=== PATIENT | female | born 1940 | race Caucasian/White ===

== ENCOUNTER 2018-01-14 16:11 | Inpatient (IN) ==
[2018-01-14] MEDS ORDERED: Naloxone 0.4 MG/ML INJ IVP PRN (20:19)
--- NOTE | 2018-01-14 20:23 | Internal Med History&Physical ---
Date of Encounter: 01/14/18 Time of Encounter: 20:23 Internal Medicine - H&P: HPI Chief complaint: Chest pain, headache Admitted From: Emergency Dept Plans for Post Hospital Care: Home History of present illness: Ms. WELLS is a 77 year old female with h/o- CAD, HTN, hypothyroidism, who was transferred from [facility], due to elevated Troponin and chest pain. Patient reports bumping her head 5 days ago, to the refrigerator door while taking something out of the fridge. She also reports pulling on plastic from the bottom rack and when she "pulled her chest muscles" because she has been having soreness in her chest and lower back since then. SHe presented to the ER today as her daughter was concerned about the bump on her head and chest pain. SHe denies cough, shortness of breath, palpitations, diaphoresis, leg swelling. SHe is ADL-independent and takes care of her at home. SHe did have h/o- 4 stents placed, the last two in 2016, follows with Cardiology as outpatient and takes ASA and Plavix. Past Med Surg Social Fam HX - Past Medical History Source: patient Medical history: coronary artery disease, hyperlipidemia, hypertension, osteoporosis, thyroid disease Psychiatric history: no psych history - Past Surgical History Surgical History: no surgical history - Social History Smoking Status: Never smoker Smokeless Tobacco Status: No Alcohol use: none Drug use: none Occupational status: retired Current living situation: Home, With Family Activity Level: Independent ambulation Recent Out of Country Travel Within the Last 8 Weeks: No Exposure or Possible Exposure to Illness During Travel: No - Family History Mother Hx Family Cardiac Disorders: Yes (CAD) Hx Family Cancer: Yes (uterine cancer) Hx Family Endocrine Disorder: Yes (DM) Father Hx Family Cardiac Disorders: Yes (CAD) Internal Medicine - H&P: Meds 3 Allergy/AdvReac Type Severity Reaction Status Date / Time atenolol Allergy Severe Weakness Verified 01/14/18 20:44 Procaine [From Novocain] Allergy Severe See Verified 01/14/18 20:48 Comments levofloxacin [From Levaquin] Allergy See Verified 01/14/18 20:46 Comments prednisone Allergy See Verified 01/14/18 20:47 Comments ticagrelor [From Brilinta] Allergy Nausea Verified 01/14/18 20:47 All Systems PM: A 10-system review of systems was performed and is negative for pertinent findings except as documented above in the HPI. - Constitutional Constitutional: no chills, no fever(s), no night sweats - EENT Eyes: no change in vision, no discharge, no pain, no photophobia Ears: no ear discharge, no ear pain, no tinnitus Nose, mouth and throat: no dysphagia, no nasal discharge, no neck pain, no sore throat - Cardiovascular Cardiovascular ROS IM: chest pain - Respiratory Respiratory: no cough, no dyspnea, no wheezing, no excessive phlegm production - Gastrointestinal Gastrointestinal: no abdominal pain, no diarrhea, no hematemesis, no hematochezia, no melena, no nausea, no vomiting - Genitourinary Genitourinary: no change in urinary stream, no dysuria, no flank pain, no hematuria - Musculoskeletal Musculoskeletal ROS IM: no numbness, no tingling - Integumentary Integumentary IM: no rash, no unusual bruising - Neurological Neurological ROS: headache(s), no confusion, no convulsions, no focal weakness, no numbness, no tingling, no tremor(s) - Hematologic/Lymphatic Hematologic/Lymphatic: no easy bruising - Constitutional Vitals: Temp Pulse Resp BP Pulse Ox 98.1 F 56 18 153/91 100 01/14/18 18:53 01/14/18 18:53 01/14/18 18:53 01/14/18 18:53 01/14/18 18:53 General appearance: Present: A&O X 3, answers questions appropriately - Respiratory Respiratory exam: Present: CTAB. Absent: accessory muscle use, rales, rhonchi, wheezes - Cardiovascular Cardiovascular exam: Present: RRR, +S1, +S2. Absent: diastolic murmur, gallop, rubs, systolic murmur - GI/Abdominal GI/Abdominal exam: Present: normal bowel sounds, soft (epigastric tenderness), no peritoneal signs. Absent: distended, tenderness - Extremities Exam Extremities exam: Present: full ROM, warm, radial pulses palpable and symmetrical. Absent: calf tenderness, cyanotic, pedal edema - Neurological Exam Neurological exam: Present: CN II-XII intact, oriented X3, no focal deficits. Absent: pronater drift, facial droop, speech deficit - Skin Skin exam: Present: dry, intact - Assessment and plan (1) NSTEMI (non-ST elevated myocardial infarction) Current Visit: Yes Status: Acute Assessment and plan: patient presents with chest pain, noted to have Troponin leak of 0.53, second one elevated to 1.21; EKG shows sinus bradycardia, LVH, LAD, septal infarct; continue anticoagulation with IV Heparin drip, Telemetry monitoring and cycle Troponins. Patient reports some chest and epigastric discomfort both due to musculoskeletal injury and possible anginal pain; continue PRN Tylenol and NTG. Continue beta pau, hold if HR<60; continue ASA, Plavix, statin; check TTE. Cardiology has been consulted by ER physician; High risk for complications; (2) CAD (coronary artery disease) Current Visit: Yes Status: Chronic Qualifiers: Coronary Disease-Associated Artery/Lesion type: [place] artery [place] vs. transplanted heart: [place] heart Associated angina: with unstable angina Qualified Code(s): I25.110 - Atherosclerotic heart disease of [place] coronary artery with unstable angina pectoris (3) Essential hypertension Current Visit: Yes Status: Chronic Assessment and plan: monitor BP closely and resume home meds; (4) Osteoporosis Current Visit: Yes Status: Chronic Qualifiers: Osteoporosis type: age-related Presence of current pathological fracture: unspecified Qualified Code(s): M81.0 - Age-related osteoporosis without current pathological fracture (5) Hypothyroidism Current Visit: Yes Status: Chronic Assessment and plan: continue Levothyroxine; Qualifiers: Hypothyroidism type: unspecified Qualified Code(s): E03.9 - Hypothyroidism , unspecified - Time Spent With Patient Total time spent is greater than 50% in coordination of care (as documented) at patient's floor/unit and/or counseling patient:
[2018-01-14] MEDS ORDERED: *HR* Heparin 5,000 UNIT/ML VIAL IVP ONE (21:39)
[2018-01-14] MEDS ORDERED: *HR* Heparin 5,000 UNIT/ML VIAL IVP PRN (21:39)
[2018-01-14 21:57] LABS: Prothrombin Time 10.9 Seconds (9.4-12.1)
[2018-01-14 22:10] LABS: Activated Partial Thrombo Time 234.4 Seconds (26.0-36.0)
[2018-01-14 22:26] LABS: Heparin anti-factor XA UFH 1.04 IU/mL (0.30-0.70)
[2018-01-14 22:38] LABS: Hematocrit 34.4 % (35.3-44.9); Hemoglobin 11.7 g/dL (11.5-15.4); Mean Corpuscular Hemoglobin 32.4 pg (28.0-33.3); Mean Corpuscular Volume 95.3 fL (83.0-100.0); Mean Platelet Volume 10.8 fL (9.4-12.4); Platelet Count 235 K/mcL (140-400); Red Blood Count 3.61 M/mcL (3.82-4.97); Red Cell Distribution Width 12.7 % (11.5-14.5)
[2018-01-14] MEDS: Acetaminophen 325 MG TABLET PO PRN (22:50)
[2018-01-14] MEDS: Heparin 25,000 UNIT/500 ML D5W 25,000 UNIT/500 ML BAG IVC SCH (23:52)
[2018-01-15 02:35] LABS: Basophils % 0.5 %; Eosinophils # 0.2 K/mcL (0.0-0.6); Eosinophils % 2.1 %; Hematocrit 31.9 % (35.3-44.9); Hemoglobin 10.8 g/dL (11.5-15.4); Immature Granulocytes % 0.1 % (0-4); Lymphocytes # 3.4 K/mcL (0.6-4.6); Lymphocytes % 40.2 %; Mean Corpuscular HGB Conc 33.9 g/dL (31.6-35.5); Mean Corpuscular Hemoglobin 32.4 pg (28.0-33.3); Mean Corpuscular Volume 95.8 fL (83.0-100.0); Monocytes # 0.8 K/mcL (0.0-1.3); Monocytes % 9.4 %; Platelet Count 250 K/mcL (140-400); Red Blood Count 3.33 M/mcL (3.82-4.97); Red Cell Distribution Width 12.6 % (11.5-14.5); Segmented Neutrophils % 47.7 %
[2018-01-15 02:53] LABS: BUN/Creatinine Ratio 19 (6-26); Blood Urea Nitrogen 14 mg/dL (8-23); Calcium 9.2 mg/dL (8.6-10.3); Carbon Dioxide 27 mEq/L (23-29); Chloride 102 mEq/L (98-107); Cholesterol 208 mg/dL (< 200); Glucose 62 mg/dL (70-105); HDL Cholesterol 69 mg/dL (40-59); LDL Cholesterol,Calculated 127 mg/dL (0-99); Osmolality,Calculated 274 (280-300); Potassium 3.9 mEq/L (3.5-5.1); Sodium 133 mEq/L (136-145); Triglycerides 59 mg/dL (< 150); eGFR For African Americans > 60 (> 60); eGFR For Non-African Americans > 60 (> 60)
[2018-01-15] MEDS ORDERED: Dextrose Gel 15 GM/37.5 ML TUBE PO PRN (08:25)
[2018-01-15] MEDS ORDERED: *HR* Dextrose 50 % in Water (Syg) 50 ML SYRINGE IVP PRN (08:25)
[2018-01-15] MEDS ORDERED: D5% in Water 1,000 ML IVC PRN (08:25)
[2018-01-15] MEDS: Dextrose Gel 15 GM/37.5 ML TUBE PO PRN ×2 (08:52→09:22)
[2018-01-15] MEDS: Aspirin Enteric Coated 81 MG Tablet PO SCH (08:52)
--- NOTE | 2018-01-15 09:12 | Cardiology Consult Note ---
Date of Encounter: 01/15/18 Time of Encounter: 09:04 Assessment and Plan (1) NSTEMI (non-ST elevated myocardial infarction) Current Visit: Yes Status: Acute Chest pain atypical on presentation with elevated troponins peak 1.2 history of last stents in July 2016 an outside hospital. Obtain records for review and plan for left heart cath. Risks benefits and alternatives discussed patient she agrees to proceed. Discussion w patient/family: The assessment and plan as outlined above was discussed with the patient and/or family members who expressed understanding and agreement. All questions were answered. Thank you for involving us in the care of your patient. Please call with any questions. History of Present Illness Consult date: 01/15/18 Consult reason: NSTEMI Chief complaint: Chest Pain History of present illness: Ms. WELLS is a 77 year old female with history of hypertension found to have an elevated troponin peak of 1.2 transferred to [facility]. Patient has history of coronary artery disease status post 4 stents in the past most recent July 2016. These were done at an outside hospital by Dr. Salgado, Will obtain records for review. Patient likely will need left heart catheter for elevated troponins and chest pain. Currently on ACS heparin continuing aspirin and Plavix. Patient is chest pain-free Past Med Surg Social Fam HX - Past Medical History Medical history: coronary artery disease, hyperlipidemia, hypertension, osteoporosis, thyroid disease Psychiatric history: no psych history - Past Surgical History Surgical History: no surgical history - Social History Smoking Status: Never smoker Smokeless Tobacco Status: No Alcohol use: none Drug use: none - Family History Mother Hx Family Cardiac Disorders: Yes (CAD) Hx Family Cancer: Yes (uterine cancer) Hx Family Endocrine Disorder: Yes (DM) Father Hx Family Cardiac Disorders: Yes (CAD) Medications and Allergies 3 Allergy/AdvReac Type Severity Reaction Status Date / Time atenolol Allergy Severe Weakness Verified 01/14/18 20:44 Procaine [From Novocain] Allergy Severe See Verified 01/14/18 20:48 Comments levofloxacin [From Levaquin] Allergy See Verified 01/14/18 20:46 Comments prednisone Allergy See Verified 01/14/18 20:47 Comments ticagrelor [From Brilinta] Allergy Nausea Verified 01/14/18 20:47 All Systems Review: The remainder of the systems were reviewed and are negative Physical Examination Vital Signs, Last 4 Hours Temp Pulse Resp BP Pulse Ox 01/15/18 07:19 97.7 F 58 17 138/74 94 General: Conversant, No Apparent Distress HEENT: Atraumatic, Normocephaly, Mucus Membranes Moist Neck: No JVD, Normal carotid pulses Cardiac: Reg Rate and Rhythm, Normal S1 and S2, No Murmur Lungs: Normal Breath Sounds, No Wheeze, Rales, Rhonchi Neuro: Alert and responsive, No focal deficits noted Abdomen: Soft, Non-Tender Skin: No rashes noted on visualized skin Musculoskeletal: No Chest Wall Tenderness Extremities: No Clubbing, No Cyanosis, No Edema, Normal Pulses Results 01/15/18 02:15 01/15/18 02:15 Lab Results 01/14/18 01/14/18 01/14/18 20:43 21:03 22:29 WBC 8.9 Hgb 11.7 Hct 34.4 L Plt Count 235 INR 1.0 APTT 234.4 H* Sodium Potassium Chloride Carbon Dioxide BUN Creatinine Glucose Calcium Troponin I 1.21 H* 01/15/18 01/15/18 01/15/18 02:15 02:15 02:15 WBC 8.4 Hgb 10.8 L Hct 31.9 L Plt Count 250 INR APTT Sodium 133 L Potassium 3.9 Chloride 102 Carbon Dioxide 27 BUN 14 Creatinine 0.73 Glucose 62 L Calcium 9.2 Troponin I 0.80 H* 01/15/18 01/15/18 05:35 08:13 WBC Hgb Hct Plt Count INR APTT 88.4 H D Sodium Potassium Chloride Carbon Dioxide BUN Creatinine Glucose Calcium Troponin I 0.42 H*
--- NOTE | 2018-01-15 10:05 | Internal Med Progress Note ---
<Jae Villanueva - Last Filed: 01/15/18 15:56> Date of Encounter: 01/15/18 Time of Encounter: 08:00 - Assessment and plan (1) NSTEMI (non-ST elevated myocardial infarction) Current Visit: Yes Status: Acute Assessment and plan: - Elevated troponin at 1.21 which later trended down to 0.80 and 0.42. - Cardiology is waiting for patient's medical record from other facilities to decide if patient needs C. - Patient reports no chest pain at this time. - Continue heparin drip, aspirin, Plavix. - Continue to monitor closely with telemetry. (2) CAD (coronary artery disease) Current Visit: Yes Status: Chronic Assessment and plan: - Significantly history of CAD s/p stents x4. - Continue aspirin and Plavix. Qualifiers: Coronary Disease-Associated Artery/Lesion type: [place] artery [place] vs. transplanted heart: [place] heart Associated angina: with unstable angina Qualified Code(s): I25.110 - Atherosclerotic heart disease of [place] coronary artery with unstable angina pectoris (3) Essential hypertension Current Visit: Yes Status: Chronic Assessment and plan: - Blood pressure within normal range most of time. - Continue current antihypertensive regimen. (4) Hypothyroidism Current Visit: Yes Status: Chronic Assessment and plan: - Continue home dose Synthroid. Qualifiers: Hypothyroidism type: unspecified Qualified Code(s): E03.9 - Hypothyroidism , unspecified (5) Osteoporosis Current Visit: Yes Status: Chronic Assessment and plan: - Per patient's family, patient was told in the past not a CABG candidate given her significant osteoporosis. Qualifiers: Osteoporosis type: age-related Presence of current pathological fracture: unspecified Qualified Code(s): M81.0 - Age-related osteoporosis without current pathological fracture (6) DVT prophylaxis Current Visit: Yes Status: Acute Assessment and plan: - Currently on heparin drip. - Time Spent With Patient Total time spent is greater than 50% in coordination of care (as documented) at patient's floor/unit and/or counseling patient: - Subjective Interval history: Patient was seen and examined this morning. Patient reports chest pain resolved and denies shortness of breath, palpitation, diaphoresis, abdominal pain, nausea , vomiting. - Constitutional Vitals: Temp Pulse Resp BP Pulse Ox 97.7 F 58 17 138/74 94 01/15/18 07:19 01/15/18 07:19 01/15/18 07:19 01/15/18 07:19 01/15/18 07:19 General appearance: Present: A&O X 3, answers questions appropriately - Head Head exam: Present: normal inspection - Eye Eye exam: Present: EOMI - Neck Neck exam general surgery: Present: normal inspection, trachea midline - Respiratory Respiratory exam: Present: CTAB - Cardiovascular Cardiovascular exam: Present: RRR, +S1, +S2 - GI/Abdominal GI/Abdominal exam: Present: normal bowel sounds, soft. Absent: tenderness - Extremities Exam Extremities exam: Absent: cyanotic, pedal edema - Neurological Exam Neurological exam: Present: alert, no focal deficits. Absent: facial droop, speech deficit - Skin Skin exam: Present: dry, warm Internal Medicine: Result - Labs CBC & Chem 7: 01/15/18 02:15 01/15/18 02:15 Labs: Short CBC 01/14/18 01/15/18 Range/Units 22:29 02:15 WBC 8.9 8.4 (4.3-11.1) K/mcL Hgb 11.7 10.8 L (11.5-15.4) g/dL Hct 34.4 L 31.9 L (35.3-44.9) % Plt Count 235 250 (140-400) K/mcL Neutrophils # 4.0 (1.6-8.9) K/mcL BMP 01/15/18 02:15 Sodium 133 L Potassium 3.9 Chloride 102 Carbon Dioxide 27 BUN 14 Creatinine 0.73 Glucose 62 L Calcium 9.2 Cardiac Enzymes 01/14/18 01/15/18 01/15/18 Range/Units 20:43 02:15 08:13 Troponin I 1.21 H* 0.80 H* 0.42 H* (< 0.04) ng/mL - ABG Interpretation ABG results: PT/INR, D-dimer PT 10.9 Seconds (9.4-12.1) 01/14/18 21:03 <Angel Delgadillo - Last Filed: 01/15/18 18:21> Date of Encounter: 01/15/18 - Assessment and plan (1) NSTEMI (non-ST elevated myocardial infarction) Current Visit: Yes Status: Acute (2) CAD (coronary artery disease) Current Visit: Yes Status: Chronic Qualifiers: Coronary Disease-Associated Artery/Lesion type: [place] artery [place] vs. transplanted heart: [place] heart Associated angina: with unstable angina Qualified Code(s): I25.110 - Atherosclerotic heart disease of [place] coronary artery with unstable angina pectoris (3) Essential hypertension Current Visit: Yes Status: Chronic (4) Osteoporosis Current Visit: Yes Status: Chronic Qualifiers: Osteoporosis type: age-related Presence of current pathological fracture: unspecified Qualified Code(s): M81.0 - Age-related osteoporosis without current pathological fracture (5) Hypothyroidism Current Visit: Yes Status: Chronic Qualifiers: Hypothyroidism type: acquired Qualified Code(s): E03.9 - Hypothyroidism, unspecified (6) Vasovagal episode Current Visit: Yes Status: Acute - Time Spent With Patient Total time spent is greater than 50% in coordination of care (as documented) at patient's floor/unit and/or counseling patient: - Constitutional Vitals: Temp Pulse Resp BP Pulse Ox 97.7 F 60 16 156/72 99 01/15/18 16:30 01/15/18 16:30 01/15/18 11:40 01/15/18 16:30 01/15/18 16:30 Internal Medicine: Result - Labs CBC & Chem 7: 01/15/18 02:15 01/15/18 02:15 Labs: Short CBC 01/14/18 01/15/18 Range/Units 22:29 02:15 WBC 8.9 8.4 (4.3-11.1) K/mcL Hgb 11.7 10.8 L (11.5-15.4) g/dL Hct 34.4 L 31.9 L (35.3-44.9) % Plt Count 235 250 (140-400) K/mcL Neutrophils # 4.0 (1.6-8.9) K/mcL BMP 01/15/18 02:15 Sodium 133 L Potassium 3.9 Chloride 102 Carbon Dioxide 27 BUN 14 Creatinine 0.73 Glucose 62 L Calcium 9.2 Cardiac Enzymes 01/14/18 01/15/18 01/15/18 Range/Units 20:43 02:15 08:13 Troponin I 1.21 H* 0.80 H* 0.42 H* (< 0.04) ng/mL 01/15/18 Range/Units 16:40 Troponin I 0.25 H* (< 0.04) ng/mL - ABG Interpretation ABG results: PT/INR, D-dimer PT 10.9 Seconds (9.4-12.1) 01/14/18 21:03 - Impressions Impressions Echocardiogram 01/14/18 20:21 Impressions: LVEF 40%. Mild left ventricular diastolic dysfunction. Normal right ventricular structure and function. Mildly dilated left atrium. Mild-moderate aortic regurgitation. The aortic root is mildly dilated. Left Ventricular Wall Motion: Rest Echo Findings The apex, apical inferior, mid inferior, basal inferior, apical anterior, mid anterior, basal anterior, apical septal, mid inferior septal, basal inferior septal, apical lateral, mid anterior lateral, basal anterior lateral, mid anterior septal, mid inferior lateral, basal anterior septal and basal inferior lateral [place] were hypokinetic. Findings: Study Quality * Technically adequate exam. ECG Findings * Sinus bradycardia. Left Ventricle * LVEF 40%. * Mild left ventricular diastolic dysfunction. Right Ventricle * Normal right ventricular structure and function. Left Atrium * Mildly dilated left atrium. Right Atrium * Normal right atrial size. Interatrial Septum * No evidence of PFO by color Doppler. Aortic Valve * Mild-moderate aortic regurgitation. Mitral Valve * Normal mitral valve structure and function. Tricuspid Valve * Unable to estimate RVSP due to lack of TR jet. Pulmonic Valve * Trace pulmonic regurgitation. Aorta * The aortic root is mildly dilated. Pericardium * The pericardium appears normal. IVC * The IVC is not well evaluated. - Attending Attestation I examined this patient and my medical decision-making was reviewed with the Resident Physician on 01/15/18. I agree with the documented findings, disposition and treatment plan as described except to the extent set forth below. Ms Hayes is currently admitted for acute NSTEMI. She remains moderate to high risk due to potential for worsening clinical status. Ms Hayes had episode of bradycardia and vagal today. She had nausea and chest pain. EKG was worse. 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 Exam alert Moderate distress Mucus membranes dry Heart reg and paxton Lungs diminished Abd soft I/P 1. Vasovagal 2. NSTEMI Further diagnoses and plan as above.
[2018-01-15] MEDS ORDERED: Ondansetron 4 MG/2 ML VIAL ONE (16:50)
[2018-01-15] MEDS ORDERED: 0.9 % Sodium Chloride 1,000 ML ONE (17:18)
[2018-01-15] MEDS ORDERED: *HR* Heparin 10,000 UNIT/10 ML VIAL ONE (17:18)
[2018-01-15] MEDS ORDERED: Heparin 1,000 UNITS/500 mL 500 ML ONE ×2 (17:18→18:51)
[2018-01-15] MEDS ORDERED: ISOVUE-370 200 ML INFUS..BTL IV ONE ×2 (17:18→18:33)
[2018-01-15] MEDS ORDERED: Nitroglycerin 1,000 MCG/10 ML VIAL IV ONE (17:19)
--- NOTE | 2018-01-15 17:20 | Pre-Sedation Evaluation ---
Pre-sedation evaluation - Pre-sedation checklist Date of procedure: 01/15/18 Procedure: heart cath Recent Vitals: Last Vital Signs Temp 97.7 F 01/15/18 16:30 Pulse 60 01/15/18 16:30 Resp 16 01/15/18 11:40 BP 156/72 01/15/18 16:30 Pulse Ox 99 01/15/18 16:30 H&P (including ROS) documented in medical record: Yes Previous reaction to sedatives/anesthetics: No Dietary Status: No solid food in preceding 4 hrs and no liquid in preceding 2 hrs Dentition: No loose teeth or bridges ASA Classification *see protocol: CLASS II-Mild systemic disease
[2018-01-15] MEDS ORDERED: *HR* Midazolam HCl 2 MG/2 ML VIAL ONE (17:53)
[2018-01-15] MEDS ORDERED: *HR* FentaNYL (PF) 100 MCG/2 ML VIAL ONE (17:54)
--- NOTE | 2018-01-15 19:45 | Invasive Diagnostic Lab Proc ---
Name: OLEGARIO WELLS Date of Study: 01/15/2018 Date: 1940 Ht: 57.1in Medical Record#: [id number] Age: 77 Wt: 99.21lb Gender: Female BSA: 1.34 Order #: [id number] BMI: 21.4 Physicians Procedure Physician: Marisela Garcias MD Referring MD: Referring MD: Staff Name Position Time In Malika Dominique RN Monitor 05:52 PM Jody Rose RN Hospital Staff Pharmacist 05:52 PM Genet Webb RT (R) Scrub 05:52 PM Indications Indication Non-Stemi Procedures Performed Procedure CORONARY ARTERY ANGIO S&I Pre-Procedure Checklist Informed consent is complete signed and on chart. H&P is on chart. ID band is on and ID verified with patient. Patient NPO for procedure The procedure was described for the patient and questions were answered. Blood Pressure: 156/72 ECG is on chart. Rhythm: NSR Plan of Care Patient will tolerate the procedure without complications. Adequate level of comfort will be maintained. Hemodynamics will remain stable Patient will recover from procedure without complications. Respiratory function will be maintained. Cardiac rhythm will remain stable. Patient temperature will be maintained. Patient and/or family have verbalized understanding of the procedure. Patient Education Chief Complaint/Reason for Test: Cardiac Cath Developmental Category: Geriatric (65+ years) Developmentally Appropriate for Age: Yes Learning Barriers: None Education Needs: Procedure Education Method: Verbal Information Taught: Cardiac Cath Educational Evaluation: Able to repeat information Intravenous Access Time IV Size Location DC'd Fluid/Drip Rate Units RN 05:30 PM 18g 1 1/" Patent On Arrival Lt Antecubital 0.9NaCl 25 ml/hr Jody Rose RN Allergies levofloxacin prednisone Procaine atenolol ticagrelor Vital Signs Time BP (mmHg) HR (bpm) O2 Sat. RR (bpm) LOC 05:31 PM 156 / 72 60 99 % 16 5 = Fully awake and oriented or at pre-proc level 06:01 PM / % 5 = Fully awake and oriented or at pre-proc level 06:01 PM / % 4 = Oriented but drowsy 06:17 PM / % 4 = Oriented but drowsy 06:32 PM / % 4 = Oriented but drowsy 06:47 PM / % 4 = Oriented but drowsy 05:53 PM 181 / 75 66 100 % 05:58 PM 176 / 75 62 96 % 06:03 PM 170 / 77 62 100 % 06:08 PM 141 / 64 58 93 % 06:12 PM 140 / 87 55 100 % 06:17 PM 134 / 67 76 100 % 06:22 PM 139 / 71 53 100 % 06:27 PM 145 / 67 58 100 % 06:33 PM 145 / 64 53 100 % 06:38 PM 129 / 66 55 100 % 06:43 PM 143 / 75 53 100 % 06:48 PM 155 / 77 60 100 % 06:53 PM 135 / 73 47 100 % 06:57 PM 144 / 67 59 100 % 07:03 PM 150 / 76 57 100 % 07:08 PM 161 / 73 65 100 % 07:13 PM 164 / 74 58 100 % Procedural Medications Time Medication Dose Units Method Given By 06:01 PM Oxygen 2 L/min nasal cannula Jody Rose RN 06:08 PM Lidocaine 2% 20 ml Subcutaneous Marisela Garcias MD 06:09 PM Oxygen 4 L/min nasal cannula Jody Rose RN 06:26 PM Heparin 1000 units Intravenous Jody Rose RN 06:32 PM Versed 0.5 mg Intravenous Jody Rose RN 06:32 PM Fentanyl 25 mcg Intravenous Jody Rose RN 06:41 PM Heparin 1000 units Intravenous Jody Rose RN 06:50 PM Versed 0.5 mg Intravenous Jody Rose RN 06:50 PM Fentanyl 25 mcg Intravenous Jdoy Rose RN Jonathan Score Preprocedure Postprocedure Activity 2- Moves 4 extremities sustained head lift Activity 2- Moves 4 extremities sustained head lift Circulation 2- SBP +/= 20 points of pre-anesthetic level Circulation 2- SBP +/= 20 points of pre-anesthetic level Consciousness 2- Awake and alert oriented x 3 Consciousness 2- Awake and alert oriented x 3 O2 Saturation 2- Able to maintain O2 satruation of 92% on room air O2 Saturation 2- Able to maintain O2 satruation of 92% on room air Respiratory 2- Able to deep breathe and cough well Respiratory 2- Able to deep breathe and cough well Total Score 10 Total Score 10 Contrast Agent: Isovue Diagnostic Contrast: 266 ml Total Contrast: 266 ml Fluoro Dose: 1209 mGy Activated Clotting Time Time Seconds to Clot 06:21 PM 153 06:43 PM 214 Procedure Log Time Note Enter By 05:30 PM CathStat 05:50 PM Meet and greet completed on floor with patient scoates 05:52 PM Vitals capture started with the following parameters, Patient=Adult, Interval=5 min, Initial Mprruypi=334 mmHg, Deflation Rate=5 mmHg, Cuff placed on Right Arm 05:52 PM Pt arrived to assistant laboratory director 2 at 17:52 [facility] 05:52 PM Sign in performed according to hospital policy. scoates 05:52 PM Dominique Daly RN Position: Monitor [facility]: 17:52 [facility] PM Jody Rose RN Position: Hospital Staff Pharmacist Time in: 17:52 [facility] 05:52 PM Genet Webb RT (R) Position: Scrub Time in: 17:52 [facility] 05:52 PM Patient charges- Angio tray pack, Navilyst 3mm J, Pulse Oximetry and ACIST tubing and transducer [facility] 05:52 PM Case Delayed No, inpatient [facility] 05:53 PM HR=66 bpm, MKDZ=510/75 mmhg, LcI8=280.0 %, Comment=sr 05:53 PM Procedure start 17:53 scoates 05:55 PM Hair removed from procedure site in procedure lab using clippers. Bilateral groin prepped with Chloraprep by Jody Rose RN, then patient was draped. Skin intact. [facility] 05:58 PM HR=62 bpm, ZRKD=686/75 mmhg, SpO2=96.0 %, Comment=sr 06:01 PM Time: 18:01 Oxygen on at 2 L/min per nasal cannula by Jody Rose RN [facility] 06[facility]01 PM Time: 18:01 Patient comfortable and pain free: Yes [facility] 06:01 PM Time: 18:01LOC: 5 = Fully awake and oriented or at pre-proc level [facility] 06:02 PM Clinical Presentation: Non-STEMI [facility] 06:03 PM HR=62 bpm, PCTR=080/77 mmhg, DcG7=477.0 %, Comment=sr 06:08 PM Time out performed according to hospital policy scoates 06:08 PM HR=58 bpm, SAKB=636/64 mmhg, SpO2=93.0 %, Comment=sb 06:08 PM Time: 18:08 20 ml Lidocaine 2% to right groin Subcutaneous Given by Marisela Garcias MD scoates 06:10 PM Time: 18:09 Oxygen on at 4 L/min per nasal cannula by Jody Rose RN scoates 06:12 PM HR=55 bpm, OUNI=167/87 mmhg, CcO4=482.0 %, Comment=sr 06:12 PM Micro-Introducer Kit utilized for sheath placement scoates 06:13 PM Access obtained by percutaneous puncture. 6Fr 10cm Terumo Stanley sheath placed in right Femoral artery. [id number] scoates 06:13 PM 3mls of contrast hand injected into the femoral artery scoates 06:14 PM 5Fr FR 4 catheter inserted over the wire DNC scoates 06:14 PM Recorded Pressure: Ao, HR=53, Condition=Condition 1 (Aorta) Ao 131/59/89 06:15 PM Recorded Pressure: Ao, HR=51, Condition=Condition 1 (Aorta) Ao 123/57/84 06:15 PM RCA angiography performed in multiple views. scoates 06:15 PM Catheter removed scoates 06:16 PM 5Fr FL 4 catheter inserted over the wire DNC scoates 06:16 PM Time: 18:01 Patient comfortable and pain free: Yes scoates 06:17 PM Time: 18:01LOC: 4 = Oriented but drowsy scoates 06:17 PM Recorded Pressure: Ao, HR=51, Condition=Condition 1 (Aorta) Ao 131/52/84 06:17 PM HR=76 bpm, FNRG=625/67 mmhg, GlR0=653.0 %, Comment=sr 06:18 PM Catheter removed scoates 06:18 PM 5Fr FL3.5 catheter inserted over the wire [id number] scoates 06:19 PM ACT running scoates 06:21 PM At 18:21 the ACT was 153 seconds. scoates 06:22 PM x6Fr XB LAD 3.5 [place] Bright-Tip guide catheter was used to cannulate the PCI vessel successfully. reused? No scoates 06:22 PM HR=53 bpm, IEVO=314/71 mmhg, GgQ7=564.0 %, Comment=sb 06:23 PM Recorded Pressure: Ao, HR=60, Condition=Condition 1 (Aorta) Ao 157/60/96 06:25 PM Recorded Pressure: Ao, HR=56, Condition=Condition 1 (Aorta) Ao 147/53/90 06:26 PM Time: 18:26 Heparin 1000 units Intravenous Given by Jody Rose RN scoates 06:27 PM Guide catheter removed intact. scoates 06:27 PM 6Fr XB LAD 3.5 [place] Bright-Tip guide catheter was used to cannulate the PCI vessel successfully. reused? No scoates 06:27 PM HR=58 bpm, CVSH=820/67 mmhg, NhV1=539.0 %, Comment=sb 06:29 PM Guide catheter removed intact. scoates 06:30 PM 6Fr FL 4 catheter inserted over the wire DNC scoates 06:32 PM Time: 18:16 Patient comfortable and pain free: Yes scoates 06:32 PM Time: 18:17LOC: 4 = Oriented but drowsy scoates 06:32 PM Time: 18:32 Versed 0.5 mg Intravenous Given by Jody Rose RN scoates 06:32 PM Time: 18:32 Fentanyl 25 mcg Intravenous Given by Jody Rose RN scoates 06:32 PM Recorded Pressure: Ao, HR=65, Condition=Condition 1 (Aorta) Ao 170/75/113 06:33 PM HR=53 bpm, SIQZ=487/64 mmhg, PwU5=059.0 %, Comment=sr 06:37 PM Sheath exchanged for a 6 Fr 45 cm [place] sheath [id number] scoates 06:38 PM HR=55 bpm, ZGWI=205/66 mmhg, LcK7=422.0 %, Comment=sr 06:38 PM JL3.5 5f diagnostic catheter reinserted scoates 06:41 PM Time: 18:41 Heparin 1000 units Intravenous Given by Jody Rose RN scoates 06:43 PM HR=53 bpm, ESQR=846/75 mmhg, XdZ9=303.0 %, Comment=sb 06:44 PM Catheter removed scoates 06:44 PM 6Fr JL3 [place] Bright-Tip guide catheter was used to cannulate the PCI vessel successfully. reused? No scoates 06:46 PM Guide catheter removed intact. scoates 06:47 PM Time: 18:32LOC: 4 = Oriented but drowsy scoates 06:47 PM Time: 18:32 Patient comfortable and pain free: Yes scoates 06:48 PM HR=60 bpm, PIYW=448/77 mmhg, FzZ4=287.0 %, Comment=sr 06:49 PM 0.035 145cm Navilyst 3mmJ wire [id number] scoates 06:50 PM 6Fr XB LAD 3.5 [place] Bright-Tip guide catheter was used to cannulate the PCI vessel successfully. reused? No scoates 06:50 PM Time: 18:50 Versed 0.5 mg Intravenous Given by Jody Rose RN scoates 06:50 PM Time: 18:50 Fentanyl 25 mcg Intravenous Given by Jody Rose RN scoates 06:51 PM Guide catheter removed intact. scoates 06:53 PM ACT running scoates 06:53 PM HR=47 bpm, SBUJ=509/73 mmhg, MfQ3=254.0 % 06:53 PM 6F JL4 reinserted scoates 06:54 PM ACT 214 scoates 06:54 PM Coronary Dominance: Left scoates 06:54 PM LCA angiography performed in multiple views. scoates 06:55 PM Recorded Pressure: Ao, HR=52, Condition=Condition 1 (Aorta) Ao 146/58/91 06:57 PM HR=59 bpm, KCJP=470/67 mmhg, XiJ8=156 % 06:59 PM Catheter removed scoates 07:01 PM 5Fr Pigtail catheter inserted over the wire DNC scoates 07:02 PM Time: 18:47LOC: 4 = Oriented but drowsy scoates 07:03 PM Bolus angiogram of descending aorta complete: 7 ml/sec for a total of 10 mls scoates 07:03 PM HR=57 bpm, FVQU=010/76 mmhg, HcI5=397 % 07:07 PM Lesion found in Mid LAD. Pre Stenosis: 60 Pre DEE Flow: scoates 07:08 PM HR=65 bpm, RWBP=826/73 mmhg, NzR1=799 % 07:09 PM Catheter removed scoates 07:09 PM Procedure completed at 19:09 scoates 07:09 PM Did you address DEE flow and Dominance? Yes scoates 07:10 PM Sign out completed: Radiation Dose 1209 mGy Fluoro Time: 23.2 Isovue 370 - 200ml contrast 266 ml given by Marisela Garcias MD. Complications: NoneCardiac Rehab Consult needed: NoConfirmed administered medications: Yes scoates 07:13 PM HR=58 bpm, SQPW=090/74 mmhg, SyE0=342 % 07:15 PM Isovue 370 - 200ml,2 Bottle(s) used. scoates 07:16 PM Arterial sheath pulled, Angio-seal closure device used and was Successful [id number] S/N. scoates 07:16 PM Estimated Blood Loss: less than 20cc scoates 07:16 PM Post ECG Sinus Bradycardia scoates 07:16 PM Post Blood Pressure 164/74 scoates 07:16 PM 19:16 Post Pulses Bilateral DP & PT 1+ scoates 07:17 PM Information taught Cardiac Cath and Angioseal scoates 07:17 PM Education needs Procedure, Plan of Care, and Responsibilities of Patient in Care scoates 07:17 PM Learning barriers :None scoates 07:17 PM Education Methods Verbal scoates 07:17 PM Education evaluation Able to repeat information scoates 07:17 PM Site status No bleeding/hematoma - Rt Groin as reported by Genet Webb RT (R) at 19:17 scoates 07:17 PM Opsite applied scoates 07:17 PM Plavix, Effient or Brilinta given No scoates 07:18 PM Delay to floor No scoates 07:18 PM Family placed in consult room. scoates 07:18 PM Lesion found in LMCA. Pre Stenosis: 55 Pre DEE Flow: scoates 07:22 PM Conversation between Interventionalist and CT Surgeon. scoates 07:29 PM Report given to Dayna UDARTE Pt taken to E Room #32. 19:36 scoates 07:36 PM Patient out of room: 19:29 scoates 07:37 PM Fluoro Time: 23.2 scoates 07:37 PM Radiation Dose 1209 mGy scoates Complications Complication None Hemodynamics Pressures Site Systolic/A Wave Diastolic/V Wave Mean AO 131 59 89 AO 123 57 84 AO 131 52 84 AO 157 60 96 AO 147 53 90 AO 170 75 113 AO 146 58 91 Post Procedure Information Blood Pressure: 164/74 mmHg Rhythm: Sinus Bradycardia Post procedural instructions were given Closure Device Time Device Success/Fail 01/15/2018 7:18:00 PM Angio-Seal VIP Successful Site Checks Time Location Status Staff Sheath In? Note 07:17 PM Rt Groin No bleeding/hematoma Genet Webb RT (R) Pulses Time Site Pre-Procedure Post-Procedure Note 01/15/2018 5:30:00 PM Bilateral DP & PT 1+ 01/15/2018 5:30:00 PM Bilateral radial 2+ 7:16:00 PM Bilateral DP & PT 1+ Updated by Jody Rose RN on 01/15/2018 7:39:31 PM electronically signed on 01/15/2018 7:40:06 PM with status of Final
[2018-01-15] MEDS: Acetaminophen 325 MG TABLET PO PRN (20:55)
[2018-01-15] MEDS ORDERED: IVABRADINE PO SCH (21:00)
[2018-01-15 21:09] LABS: Activated Partial Thrombo Time 128.5 Seconds (26.0-36.0)
[2018-01-15 21:15] LABS: Heparin anti-factor XA UFH 0.7 IU/mL (0.30-0.70)
[2018-01-15] MEDS: Nitroglycerin 0.2 MG PATCH.TD24 TD SCH (23:00)
[2018-01-15] MEDS: *HR* Heparin 5,000 UNIT/ML VIAL IVP PRN (23:59)
[2018-01-16] MEDS ORDERED: *HR* OxyCODONE Immed Rel 5 MG TABLET PO PRN (02:28)
[2018-01-16 07:44] LABS: Basophils % 0.4 %; Eosinophils # 0.1 K/mcL (0.0-0.6); Eosinophils % 0.9 %; Hematocrit 30.3 % (35.3-44.9); Hemoglobin 9.9 g/dL (11.5-15.4); Immature Granulocytes % 0.3 % (0-4); Lymphocytes # 2.3 K/mcL (0.6-4.6); Lymphocytes % 28.9 %; Mean Corpuscular HGB Conc 32.7 g/dL (31.6-35.5); Mean Corpuscular Hemoglobin 31.8 pg (28.0-33.3); Mean Corpuscular Volume 97.4 fL (83.0-100.0); Monocytes # 0.8 K/mcL (0.0-1.3); Monocytes % 10.6 %; Neutrophils # 4.7 K/mcL (1.6-8.9); Platelet Count 230 K/mcL (140-400); Red Blood Count 3.11 M/mcL (3.82-4.97); Red Cell Distribution Width 13.2 % (11.5-14.5); Segmented Neutrophils % 58.9 %
[2018-01-16 07:54] LABS: BUN/Creatinine Ratio 12 (6-26); Blood Urea Nitrogen 10 mg/dL (8-23); Calcium 8.8 mg/dL (8.6-10.3); Carbon Dioxide 26 mEq/L (23-29); Chloride 101 mEq/L (98-107); Glucose 82 mg/dL (70-105); Osmolality,Calculated 274 (280-300); Potassium 3.8 mEq/L (3.5-5.1); Sodium 133 mEq/L (136-145); eGFR For African Americans > 60 (> 60); eGFR For Non-African Americans > 60 (> 60)
[2018-01-16 08:15] LABS: Activated Partial Thrombo Time 117.5 Seconds (26.0-36.0)
[2018-01-16] MEDS: Nitroglycerin 0.2 MG PATCH.TD24 TD SCH (08:30)
[2018-01-16] MEDS: Aspirin Enteric Coated 81 MG Tablet PO SCH (08:32)
[2018-01-16 08:33] LABS: Heparin anti-factor XA UFH 0.69 IU/mL (0.30-0.70)
[2018-01-16] MEDS ORDERED: Saline Nasal Spray 44 ML BOTTLE NS PRN (09:43)
--- NOTE | 2018-01-16 10:22 | Cardiology Progress Note ---
Date of Encounter: 01/16/18 Time of Encounter: 10:20 Assessment and Plan (1) NSTEMI (non-ST elevated myocardial infarction) Current Visit: Yes Status: Acute Troponins 1.21, 0.80, 0.42, 0.25. [facility] yesterday without intervention. Final report pending. Left main stenosis noted. FFR measurement in 2016 was significant 0.79 and not intervened on. Discussed with family regarding transfer to tertiary facility for a second opinion on if this high risk lesion needs intervened on. They are deciding on if they want transferred or want to wait on Dr. 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 TTE EF 40%. Mild left ventricular diastolic dysfunction. Normal right ventricular structure and function. Mildly dilated left atrium. Mild-moderate aortic regurgitation. The aortic root is mildly dilated. EF previously preserved. Right femoral access site healing well. No bleeding or hematoma. Mild ecchymosis. Continue to follow. ASA, Plavix, BB. Will discuss with pt why she is not on a statin. (2) CAD (coronary artery disease) Current Visit: Yes Status: Chronic As above. ASA, Plavix, BB. Start statin if pt agreeable Qualifiers: Coronary Disease-Associated Artery/Lesion type: [place] artery [place] vs. transplanted heart: [place] heart Associated angina: with unstable angina Qualified Code(s): I25.110 - Atherosclerotic heart disease of [place] coronary artery with unstable angina pectoris (3) Essential hypertension Current Visit: Yes Status: Chronic Controlled on current meds. (4) Cardiomyopathy Current Visit: Yes Status: Acute EF 40%, previously preserved. Final cath report pending. ICMP. Switch Atenolol to low dose Toprol XL. ACEi prior to d/c if renal function and BP will tolerate. Qualifiers: Cardiomyopathy type: unspecified Qualified Code(s): I42.9 - Cardiomyopathy , unspecified Discussion w patient/family: The assessment and plan as outlined above was discussed with the patient and/or family members who expressed understanding and agreement. All questions were answered. Thank you for involving us in the care of your patient. Please call with any questions. I will discuss all the above with Dr. Garcias and make changes as necessary. Subjective Principal diagnosis: NSTEMI Interval history: S/P [facility] yesterday--final report pending. Left main disease noted, also noted on prior LHC 07/20/16 with positive FFR at that time 0.79. Reports state consider PCI vs CABG at that time. Per pt, was turned down by surgery. Left main lesion does not appear to have been intervened on previously. No intervention was done on [facility] yesterday. TTE EF 40%. Mild left ventricular diastolic dysfunction. Normal right ventricular structure and function. Mildly dilated left atrium. Mild-moderate aortic regurgitation. The aortic root is mildly dilated. Pt denies chest pain overnight. Option to transfer to [facility] for second opinion/ intervention on left main was given to family and pt--still not decided. Objective Vital Signs, Last 4 Hours Temp Pulse Resp BP Pulse Ox 01/16/18 06:50 98 F 56 16 129/62 94 Vital Signs Temp Pulse Resp BP Pulse Ox 01/16/18 06:50 98 F 56 16 129/62 94 01/16/18 03:11 98.3 F 66 17 126/70 96 01/15/18 23:36 98.3 F 64 18 172/76 94 01/15/18 22:31 165/85 01/15/18 22:00 50 166/73 01/15/18 21:56 56 159/71 01/15/18 21:40 53 158/75 01/15/18 21:01 58 158/88 01/15/18 20:48 148/104 01/15/18 20:30 57 166/77 01/15/18 20:15 58 170/73 01/15/18 20:05 97.4 F L 59 17 162/93 93 01/15/18 19:36 97.5 F L 64 17 166/71 97 01/15/18 16:30 97.7 F 60 156/72 99 01/15/18 11:40 97.9 F 60 16 145/72 100 Intake and Output 01/15/18 01/16/18 01/16/18 23:59 07:59 15:59 Intake Total 318 / 318 0 / 0 315 / 315 Output Total 350 / 350 700 / 700 Balance -32 / -32 -700 / -700 315 / 315 Intake: IV Fluids 118 / 118 75 / 75 Heparin 25,000 UNIT/500 ML D5W 118 / 118 75 / 75 25,000 unit In 500 ml @ 12 UNIT /KG/HR 10.8 mls/hr IVC .Q24H [facility] Rx#:[id number] Oral 200 / 200 0 / 0 240 / 240 Output: Urine 350 / 350 700 / 700 Other: Meal Breakfast Percent of Meal Consumed 100% Weight 42.8 kg Blood Glucose* 97 95 Patient Weight 01/16/18 23:59 Weight 42.8 kg General: Conversant, No Apparent Distress HEENT: Atraumatic, Normocephaly, Mucus Membranes Moist Neck: No JVD, Normal carotid pulses Cardiac: Reg Rate and Rhythm, Normal S1 and S2, No Murmur Lungs: Normal Breath Sounds, No Wheeze, Rales, Rhonchi Neuro: Alert and responsive, No focal deficits noted Abdomen: Soft, Non-Tender Skin: Other (right femoral access site healing well. No bleeding or hematoma noted. Mild ecchymosis.) Musculoskeletal: No Chest Wall Tenderness Extremities: No Clubbing, No Cyanosis, No Edema, Normal Pulses Results 01/16/18 06:42 01/16/18 06:42 Lab Results 01/15/18 01/15/18 01/15/18 12:55 16:40 20:21 WBC Hgb Hct Plt Count APTT 70.3 H 128.5 H* D Sodium Potassium Chloride Carbon Dioxide BUN Creatinine Glucose Calcium Troponin I 0.25 H* 01/15/18 01/16/18 01/16/18 22:11 06:42 06:42 WBC 7.9 Hgb 9.9 L Hct 30.3 L Plt Count 230 APTT 41.0 H D Sodium 133 L Potassium 3.8 Chloride 101 Carbon Dioxide 26 BUN 10 Creatinine 0.82 Glucose 82 Calcium 8.8 Troponin I 01/16/18 06:42 WBC Hgb Hct Plt Count APTT 117.5 H* D Sodium Potassium Chloride Carbon Dioxide BUN Creatinine Glucose Calcium Troponin I Short CBC 01/16/18 Range/Units 06:42 WBC 7.9 (4.3-11.1) K/mcL Hgb 9.9 L (11.5-15.4) g/dL Hct 30.3 L (35.3-44.9) % Plt Count 230 (140-400) K/mcL Neutrophils # 4.7 (1.6-8.9) K/mcL BMP 01/16/18 Range/Units 06:42 Sodium 133 L (136-145) mEq/L Potassium 3.8 (3.5-5.1) mEq/L Chloride 101 (98-107) mEq/L Carbon Dioxide 26 (23-29) mEq/L BUN 10 (8-23) mg/dL Creatinine 0.82 (0.60-1.20) mg/dL Glucose 82 (70-105) mg/dL Calcium 8.8 (8.6-10.3) mg/dL Cardiac Enzymes 01/15/18 Range/Units 16:40 Troponin I 0.25 H* (< 0.04) ng/mL Impressions Echocardiogram 01/14/18 20:21 Impressions: LVEF 40%. Mild left ventricular diastolic dysfunction. Normal right ventricular structure and function. Mildly dilated left atrium. Mild-moderate aortic regurgitation. The aortic root is mildly dilated. Left Ventricular Wall Motion: Rest Echo Findings The apex, apical inferior, mid inferior, basal inferior, apical anterior, mid anterior, basal anterior, apical septal, mid inferior septal, basal inferior septal, apical lateral, mid anterior lateral, basal anterior lateral, mid anterior septal, mid inferior lateral, basal anterior septal and basal inferior lateral [place] were hypokinetic. Findings: Study Quality * Technically adequate exam. ECG Findings * Sinus bradycardia. Left Ventricle * LVEF 40%. * Mild left ventricular diastolic dysfunction. Right Ventricle * Normal right ventricular structure and function. Left Atrium * Mildly dilated left atrium. Right Atrium * Normal right atrial size. Interatrial Septum * No evidence of PFO by color Doppler. Aortic Valve * Mild-moderate aortic regurgitation. Mitral Valve * Normal mitral valve structure and function. Tricuspid Valve * Unable to estimate RVSP due to lack of TR jet. Pulmonic Valve * Trace pulmonic regurgitation. Aorta * The aortic root is mildly dilated. Pericardium * The pericardium appears normal. IVC * The IVC is not well evaluated. Head CT 01/15/18 19:52 IMPRESSION: No definite acute intracranial abnormality. Suboptimal exam performed following IV contrast administration. White matter hypoattenuation described is typical of microvascular ischemic disease or as sequela of dysmyelinating/demyelinating processes. Senescent changes. D/ / Maciel Burns / Maciel Burns Interpreting Provider: Maciel Burns Active Medications Acetaminophen (Tylenol) 650 mg PO Q6HR PRN PRN Reason: Mild Pain/Fever Stop: 07/16/18 20:20 Last Admin: 01/15/18 20:55 Dose: 650 mg Aspirin (Aspirin Ec) 81 mg PO DAILY [facility] Stop: 07/17/18 09:01 Last Admin: 01/16/18 08:32 Dose: 81 mg Atenolol (Tenormin) 25 mg PO DAILY [facility] Stop: 07/17/18 09:01 Last Admin: 01/16/18 08:31 Dose: Not Given Clopidogrel Bisulfate (Plavix) 75 mg PO DAILY [facility] Stop: 07/17/18 09:01 Last Admin: 01/16/18 08:32 Dose: 75 mg Dextrose/Water (Dextrose 50% (Syg)) 25 ml IVP AD PRN PRN Reason: Hypoglycemia Stop: 07/17/18 08:26 Famotidine (Pepcid) 20 mg PO DAILY [facility] PRN Reason: Protocol Stop: 07/18/18 09:46 Glucagon (Glucagen) 1 mg IM ONCE PRN PRN Reason: Hypoglycemia Stop: 07/17/18 08:26 Glucose (Gluctose) 15 gm PO ONCE PRN PRN Reason: Hypoglycemia Stop: 07/17/18 08:26 Last Admin: 01/15/18 09:22 Dose: 15 gm Glucose (Gluctose) 30 gm PO ONCE PRN PRN Reason: Hypoglycemia Stop: 07/17/18 08:26 Heparin Sodium (Porcine) (Heparin) 2,700 unit 60 unit/kg (2700 unit) IVP Q6HR PRN PRN Reason: SEE COMMENTS Stop: 07/16/18 21:40 Heparin Sodium (Porcine) (Heparin) 1,400 unit 30 unit/kg (1400 unit) IVP Q6H PRN PRN Reason: SEE COMMENTS Stop: 07/16/18 21:40 Last Admin: 01/15/18 23:59 Dose: 1,400 unit Heparin Sodium/Dextrose (Heparin 25,000 Unit/500 Ml D5w) 25,000 unit in 500 mls @ 10.8 mls/hr IVC .Q24H [facility]; 12 UNIT/KG/HR PRN Reason: Protocol Stop: 07/16/18 21:46 Last Titration: 01/16/18 08:18 Dose: 10.66 unit/kg/hr, 9.6 mls/hr Dextrose (Dextrose 5%) 1,000 mls @ 100 mls/hr IVC .Q10H PRN PRN Reason: HYPOGLYCEMIA Stop: 07/17/18 08:26 Levothyroxine Sodium (Synthroid) 75 mcg PO DAILY@30 [facility] Stop: 07/18/18 06:31 Last Admin: 01/16/18 06:09 Dose: 75 mcg Naloxone HCl (Narcan) 0.4 mg IVP Q2MIN PRN PRN Reason: SEE COMMENTS Stop: 07/16/18 20:20 Nitroglycerin (Nitroglycerin) 0.2 mg TD DAILY@729 [facility] Stop: 07/17/18 21:01 Last Admin: 01/16/18 08:30 Dose: Not Given Oxycodone HCl (Roxicodone) 2.5 mg PO Q6HR PRN; Protocol PRN Reason: moderate to severe pain Stop: 07/18/18 02:29 Last Admin: 01/16/18 03:17 Dose: 2.5 mg Pharmacy Profile Note (Patient Taking Own Medication) 0.5 each PO BID [facility] Stop: 07/17/18 21:01 Last Admin: 01/16/18 08:33 Dose: 0.5 each Sodium Chloride ([place] Nasal [place]) 2 spray NS Q2H PRN PRN Reason: Congestion Stop: 07/18/18 09:44 - Imaging and Cardiology Echo: report reviewed Cardiac cath: report reviewed - EKG Interpretation EKG results cardiology: other (12 hr tele AVG HR 65, SR, no significant pauses or arrhythmias noted.)
[2018-01-16] MEDS: Famotidine 20 MG TABLET PO SCH (12:59)
--- NOTE | 2018-01-16 13:26 | Internal Med Progress Note ---
<Jae Villanueva - Last Filed: 01/16/18 17:17> Date of Encounter: 01/16/18 Time of Encounter: 13:00 - Assessment and plan (1) NSTEMI (non-ST elevated myocardial infarction) Current Visit: Yes Status: Acute Assessment and plan: - Elevated troponin at 1.21 which later trended down to 0.80 and 0.42. - Patient reports no chest pain at this time. - LHC on 01/15/18 found significant found significant left main stenosis. - Per cardiology, patient has FFR 0.79 in 2016 but no intervention was done at that time. - Cardiology recommends transfer to tertiary care facility for a second opinion if this high-risk lesion needs intervention that cannot be provided at this facility at this time. Waiting for patient and her family's decision regarding transfer. - Continue heparin drip, aspirin, Plavix. - Continue to monitor closely with telemetry. (2) CAD (coronary artery disease) Current Visit: Yes Status: Chronic Assessment and plan: - Significantly history of CAD s/p stents x4. - Continue aspirin and Plavix. Qualifiers: Coronary Disease-Associated Artery/Lesion type: [place] artery [place] vs. transplanted heart: [place] heart Associated angina: with unstable angina Qualified Code(s): I25.110 - Atherosclerotic heart disease of [place] coronary artery with unstable angina pectoris (3) Essential hypertension Current Visit: Yes Status: Chronic Assessment and plan: - Blood pressure within normal range most of time. - Continue current antihypertensive regimen. (4) Hypothyroidism Current Visit: Yes Status: Chronic Assessment and plan: - Continue home dose Synthroid. Qualifiers: Hypothyroidism type: acquired Qualified Code(s): E03.9 - Hypothyroidism, unspecified (5) Osteoporosis Current Visit: Yes Status: Chronic Assessment and plan: - Per patient's family, patient was told in the past not a CABG candidate given her significant osteoporosis. Qualifiers: Osteoporosis type: age-related Presence of current pathological fracture: unspecified Qualified Code(s): M81.0 - Age-related osteoporosis without current pathological fracture (6) DVT prophylaxis Current Visit: Yes Status: Acute Assessment and plan: - Currently on heparin drip. - Time Spent With Patient Total time spent is greater than 50% in coordination of care (as documented) at patient's floor/unit and/or counseling patient: - Subjective Interval history: Patient was seen and examined this afternoon. Patient reports chest pain resolved and denies shortness of breath, palpitation, diaphoresis, abdominal pain, nausea, vomiting. - Constitutional Vitals: Temp Pulse Resp BP Pulse Ox 98.9 F 60 16 126/56 95 01/16/18 11:09 01/16/18 11:09 01/16/18 11:09 01/16/18 11:09 01/16/18 11:09 General appearance: Present: A&O X 3, answers questions appropriately - Head Head exam: Present: normal inspection - Eye Eye exam: Present: EOMI - Neck Neck exam general surgery: Present: normal inspection, trachea midline - Respiratory Respiratory exam: Present: CTAB - Cardiovascular Cardiovascular exam: Present: RRR, +S1, +S2 - GI/Abdominal GI/Abdominal exam: Present: normal bowel sounds, soft. Absent: tenderness - Extremities Exam Extremities exam: Absent: cyanotic, pedal edema - Neurological Exam Neurological exam: Present: alert, no focal deficits. Absent: facial droop, speech deficit - Skin Skin exam: Present: dry, warm Internal Medicine: Result - Labs CBC & Chem 7: 01/16/18 06:42 01/16/18 06:42 Labs: Short CBC 01/16/18 Range/Units 06:42 WBC 7.9 (4.3-11.1) K/mcL Hgb 9.9 L (11.5-15.4) g/dL Hct 30.3 L (35.3-44.9) % Plt Count 230 (140-400) K/mcL Neutrophils # 4.7 (1.6-8.9) K/mcL BMP 01/16/18 06:42 Sodium 133 L Potassium 3.8 Chloride 101 Carbon Dioxide 26 BUN 10 Creatinine 0.82 Glucose 82 Calcium 8.8 Cardiac Enzymes 01/15/18 Range/Units 16:40 Troponin I 0.25 H* (< 0.04) ng/mL - ABG Interpretation ABG results: PT/INR, D-dimer PT 10.9 Seconds (9.4-12.1) 01/14/18 21:03 - Impressions Impressions Echocardiogram 01/14/18 20:21 Impressions: LVEF 40%. Mild left ventricular diastolic dysfunction. Normal right ventricular structure and function. Mildly dilated left atrium. Mild-moderate aortic regurgitation. The aortic root is mildly dilated. Left Ventricular Wall Motion: Rest Echo Findings The apex, apical inferior, mid inferior, basal inferior, apical anterior, mid anterior, basal anterior, apical septal, mid inferior septal, basal inferior septal, apical lateral, mid anterior lateral, basal anterior lateral, mid anterior septal, mid inferior lateral, basal anterior septal and basal inferior lateral [place] were hypokinetic. Findings: Study Quality * Technically adequate exam. ECG Findings * Sinus bradycardia. Left Ventricle * LVEF 40%. * Mild left ventricular diastolic dysfunction. Right Ventricle * Normal right ventricular structure and function. Left Atrium * Mildly dilated left atrium. Right Atrium * Normal right atrial size. Interatrial Septum * No evidence of PFO by color Doppler. Aortic Valve * Mild-moderate aortic regurgitation. Mitral Valve * Normal mitral valve structure and function. Tricuspid Valve * Unable to estimate RVSP due to lack of TR jet. Pulmonic Valve * Trace pulmonic regurgitation. Aorta * The aortic root is mildly dilated. Pericardium * The pericardium appears normal. IVC * The IVC is not well evaluated. Head CT 01/15/18 19:52 IMPRESSION: No definite acute intracranial abnormality. Suboptimal exam performed following IV contrast administration. White matter hypoattenuation described is typical of microvascular ischemic disease or as sequela of dysmyelinating/demyelinating processes. Senescent changes. D/ / Maciel Burns / Maciel Burns Interpreting Provider: Maciel Burns Consult Discharge Plan - Plan Referrals: NONE,PCP [Primary Care Provider] - <Angel Delgadillo - Last Filed: 01/16/18 18:03> Date of Encounter: 01/16/18 - Assessment and plan (1) NSTEMI (non-ST elevated myocardial infarction) Current Visit: Yes Status: Acute (2) CAD (coronary artery disease) Current Visit: Yes Status: Chronic Qualifiers: Coronary Disease-Associated Artery/Lesion type: [place] artery [place] vs. transplanted heart: [place] heart Associated angina: with unstable angina Qualified Code(s): I25.110 - Atherosclerotic heart disease of [place] coronary artery with unstable angina pectoris (3) Essential hypertension Current Visit: Yes Status: Chronic (4) Osteoporosis Current Visit: Yes Status: Chronic Qualifiers: Osteoporosis type: age-related Presence of current pathological fracture: unspecified Qualified Code(s): M81.0 - Age-related osteoporosis without current pathological fracture (5) Hypothyroidism Current Visit: Yes Status: Chronic Qualifiers: Hypothyroidism type: acquired Qualified Code(s): E03.9 - Hypothyroidism, unspecified (6) Vasovagal episode Current Visit: Yes Status: Resolved - Time Spent With Patient Total time spent is greater than 50% in coordination of care (as documented) at patient's floor/unit and/or counseling patient: - Constitutional Vitals: Temp Pulse Resp BP Pulse Ox 98.3 F 60 16 128/55 95 01/16/18 15:13 01/16/18 15:13 01/16/18 15:13 01/16/18 15:13 01/16/18 15:13 Internal Medicine: Result - Labs CBC & Chem 7: 01/16/18 06:42 01/16/18 06:42 Labs: Short CBC 01/16/18 Range/Units 06:42 WBC 7.9 (4.3-11.1) K/mcL Hgb 9.9 L (11.5-15.4) g/dL Hct 30.3 L (35.3-44.9) % Plt Count 230 (140-400) K/mcL Neutrophils # 4.7 (1.6-8.9) K/mcL BMP 01/16/18 06:42 Sodium 133 L Potassium 3.8 Chloride 101 Carbon Dioxide 26 BUN 10 Creatinine 0.82 Glucose 82 Calcium 8.8 - ABG Interpretation ABG results: PT/INR, D-dimer PT 10.9 Seconds (9.4-12.1) 01/14/18 21:03 - Impressions Impressions Head CT 01/15/18 19:52 IMPRESSION: No definite acute intracranial abnormality. Suboptimal exam performed following IV contrast administration. White matter hypoattenuation described is typical of microvascular ischemic disease or as sequela of dysmyelinating/demyelinating processes. Senescent changes. D/ / Maciel Burns / Maciel Burns Interpreting Provider: Maciel Burns - Attending Attestation I examined this patient and my medical decision-making was reviewed with the Resident Physician on 01/16/18. I agree with the documented findings, disposition and treatment plan as described except to the extent set forth below. Ms Hayes is currently admitted for acute NSTEMI. She remains moderate to high risk due to potential for worsening clinical status. Ms Hayes is more comfortable today. Daughters at bedside and are OK with [facility] transfer but her insurance only covers [facility]. Now they need to decide. No fever or chills. No cough. Exam alert Mild distress Heart reg No wheeze Abd soft I/P 1. NSTEMI 2. Osteoporosis Further diagnoses and plan as above.
--- NOTE | 2018-01-16 13:55 | Discharge Summary ---
<Jae Villanueva - Last Filed: 01/17/18 14:36> Orders not resulted at time of discharge: Pending orders 01/15/18 16:23 EKG [ECG 12 lead ECG] [ECG] Stat 01/15/18 17:19 Left Heart Cath [CL Cardiac Catheterization] [CL] Stat Date of Encounter: 01/17/18 Time of Encounter: 13:30 - Discharge Diagnosis (1) NSTEMI (non-ST elevated myocardial infarction) Priority: Primary Status: Acute (2) CAD (coronary artery disease) Priority: Primary Status: Chronic Qualifiers: Coronary Disease-Associated Artery/Lesion type: [place] artery [place] vs. transplanted heart: [place] heart Associated angina: with unstable angina Qualified Code(s): I25.110 - Atherosclerotic heart disease of [place] coronary artery with unstable angina pectoris (3) Essential hypertension Priority: Secondary Status: Chronic (4) Hypothyroidism Priority: Secondary Status: Chronic Qualifiers: Hypothyroidism type: acquired Qualified Code(s): E03.9 - Hypothyroidism, unspecified (5) Osteoporosis Priority: Secondary Status: Chronic Qualifiers: Osteoporosis type: age-related Presence of current pathological fracture: unspecified Qualified Code(s): M81.0 - Age-related osteoporosis without current pathological fracture Hospital course: Ms. HAYES is a 77 year old female with PMH of CAD s/p stents x4 with last two in 2016, HTN and hypothyroidism who was transferred from [facility] emergency room for chest pain and elevated troponin. Patient was noted to have troponin 1.21 on arrival which later trended down to 0.80, 0.42, 0.25. Patient was admitted on 01/14/18 and started on heparin drip while continuing aspirin and Plavix. TTE on 01/15/18 showed LVEF 40%, mild left ventricular diastolic dysfunction, normal right ventricular structure and function, mildly dilated left atrium, mild-moderate aortic regurgitation and mildly dilated aortic root. [place] [facility] was consulted and left heart catheterization was done on which showed severe ostial LMT lesion. Per patient and her family, patient was told not a CABG candidate in the past given her significant osteoporosis and associated difficulty to lay flat. Per cardiology, patient has FFR 0.79 in 2016 but no intervention was done at that time. Cardiology recommends transfer to tertiary care facility for a second opinion if this high-risk lesion needs intervention that cannot be provided at this facility at this time. After discussion with Dr. Salgado of [place] [facility], patient and family eventually elected to be transferred to [facility]. Dr. Salgado discussed the case with Dr. John of cardiology at [facility] who agreed to evaluate patient. The case was discussed with [facility] hospitalist Dr. Varela who kindly accepted the patient. Patient will be transferred to [facility] once bed becomes available. Patient and her family expressed her understanding and agreement with the discharge plan. All questions were answered. Discharge discussed with: patient, family - Time Spent with Patient Total time spent providing and/or coordinating discharge services: Greater than 30 minutes (40 minutes) - Discharge Medications Home Medications: Aspirin Enteric Coated [Aspirin EC] 81 mg PO DAILY 01/15/18 [History] Cholecalciferol (Vitamin D3) [Vitamin D] 1,000 unit PO DAILY 01/15/18 [History] Clopidogrel [Plavix] 75 mg PO DAILY 01/15/18 [History] Docusate [Colace] 100 mg PO DAILY PRN 01/15/18 [History] Famotidine [Heartburn Prevention] 20 mg PO HS 01/15/18 [History] Ivabradine HCl [Corlanor] 2.5 mg PO BID 01/15/18 [History] Levothyroxine Sodium [Levoxyl] 75 mcg PO DAILY 01/15/18 [History] Lisinopril [Zestril] 10 mg PO DAILY 01/15/18 [History] Nitroglycerin [Nitrostat] 0.4 mg SL Q5MIN PRN 01/15/18 [History] Allergies/Adverse Reactions: 3 Allergy/AdvReac Type Severity Reaction Status Date / Time atenolol Allergy Severe Weakness Verified 01/14/18 20:44 Procaine [From Novocain] Allergy Severe See Verified 01/14/18 20:48 Comments levofloxacin [From Levaquin] Allergy See Verified 01/14/18 20:46 Comments prednisone Allergy See Verified 01/14/18 20:47 Comments ticagrelor [From Brilinta] Allergy Nausea Verified 01/14/18 20:47 Date of admission: 01/14/18 18:20 Consults: 01/14/18 20:21 Consult to Cardiology [CONS] Routine Comment: Consulting Provider: [facility] [place] Reason for Consult: Chest pain, elevated Troponin , h/o- CADs/ 4 stents Call Completed: Yes Discharging clinician: Jae Villanueva Anticipated date of discharge: 01/16/18 - Constitutional Vitals: Temp Pulse Resp BP Pulse Ox 98.9 F 60 16 126/56 95 01/16/18 11:09 01/16/18 11:09 01/16/18 11:09 01/16/18 11:09 01/16/18 11:09 General appearance: Present: A&O X 3, answers questions appropriately - Head Head exam: Present: normal inspection - Eye Eye exam: Present: EOMI - Neck Neck exam general surgery: Present: normal inspection, trachea midline - Respiratory Respiratory exam: Present: CTAB - Cardiovascular Cardiovascular exam: Present: RRR, +S1, +S2 - GI/Abdominal GI/Abdominal exam: Present: normal bowel sounds, soft. Absent: tenderness - Extremities Exam Extremities exam: Absent: cyanotic, pedal edema - Neurological Exam Neurological exam: Present: alert, no focal deficits. Absent: facial droop, speech deficit - Skin Skin exam: Present: dry, warm - Patient Status Disposition: Transfer Other Condition: Fair Overall status at discharge: patient is progressing back to baseline - Discharge Instructions Follow Up With: NONE,PCP [Primary Care Provider] - <Angel Delgadillo - Last Filed: 01/17/18 19:37> Orders not resulted at time of discharge: Pending orders 01/18/18 04:44 PTT [Activated Partial Thrombo Time] [COAG] Timed Date of Encounter: 01/17/18 - Discharge Diagnosis (1) NSTEMI (non-ST elevated myocardial infarction) Priority: Primary Status: Acute (2) CAD (coronary artery disease) Status: Chronic Qualifiers: Coronary Disease-Associated Artery/Lesion type: [place] artery [place] vs. transplanted heart: [place] heart Associated angina: with unstable angina Qualified Code(s): I25.110 - Atherosclerotic heart disease of [place] coronary artery with unstable angina pectoris (3) Essential hypertension Status: Chronic (4) Osteoporosis Status: Chronic Qualifiers: Osteoporosis type: age-related Presence of current pathological fracture: unspecified Qualified Code(s): M81.0 - Age-related osteoporosis without current pathological fracture (5) Hypothyroidism Status: Chronic Qualifiers: Hypothyroidism type: acquired Qualified Code(s): E03.9 - Hypothyroidism, unspecified Hospital course: Ms. Hayes is a 77 year old female - Time Spent with Patient Total time spent providing and/or coordinating discharge services: 37min Date of admission: 01/14/18 18:20 Primary care physician: PCP NONE Consults: 01/14/18 20:21 Consult to Cardiology [CONS] Routine Comment: Consulting Provider: [facility] [place] Reason for Consult: Chest pain, elevated Troponin , h/o- CADs/ 4 stents Call Completed: Yes 01/17/18 12:52 Consult to Cardiac Rehabilitation-Phase1 [CONS] Routine Comment: Reason for Consult: NSTEMI Call Completed: No - Constitutional Vitals: Temp Pulse Resp BP Pulse Ox 98.2 F 66 18 130/68 97 01/17/18 16:00 01/17/18 16:00 01/17/18 16:00 01/17/18 16:00 01/17/18 16:00 - Attending Attestation I examined this patient and my medical decision-making was reviewed with the Resident Physician on 01/17/18. I agree with the documented findings, disposition and treatment plan as described except to the extent set forth below. Ms Hayes has been admitted for ACS. She has been evaluated and is to be transferred to [facility] for further evaluation. She is afebrile at this time and famil at bedside. Exam alert Comfortable Mucus membranes dry Heart distant No wheeze Plan D/C to [facility] for further eval.
[2018-01-16] MEDS: *HR* Heparin 5,000 UNIT/ML VIAL IVP PRN (16:48)
[2018-01-16] MEDS: Acetaminophen 325 MG TABLET PO PRN (18:04)
[2018-01-17 05:07] LABS: Hematocrit 29.2 % (35.3-44.9); Hemoglobin 9.6 g/dL (11.5-15.4); Mean Corpuscular HGB Conc 32.9 g/dL (31.6-35.5); Mean Corpuscular Volume 97.3 fL (83.0-100.0); Mean Platelet Volume 11.2 fL (9.4-12.4); Platelet Count 213 K/mcL (140-400); Red Cell Distribution Width 13.1 % (11.5-14.5)
[2018-01-17 05:17] LABS: BUN/Creatinine Ratio 16 (6-26); Blood Urea Nitrogen 13 mg/dL (8-23); Calcium 9.1 mg/dL (8.6-10.3); Carbon Dioxide 26 mEq/L (23-29); Chloride 104 mEq/L (98-107); Glucose 92 mg/dL (70-105); Osmolality,Calculated 282 (280-300); Sodium 136 mEq/L (136-145); eGFR For African Americans > 60 (> 60); eGFR For Non-African Americans > 60 (> 60)
[2018-01-17] MEDS: Heparin 25,000 UNIT/500 ML D5W 25,000 UNIT/500 ML BAG IVC SCH (05:54)
[2018-01-17] MEDS: Famotidine 20 MG TABLET PO SCH (08:36)
[2018-01-17] MEDS: Nitroglycerin 0.2 MG PATCH.TD24 TD SCH (08:36)
[2018-01-17] MEDS: Aspirin Enteric Coated 81 MG Tablet PO SCH (08:36)
[2018-01-17] MEDS: Acetaminophen 325 MG TABLET PO PRN ×2 (11:42→18:52)
[2018-01-17] MEDS ORDERED: Simethicone 80 MG TAB.CHEW PO PRN (11:45)
--- NOTE | 2018-01-17 13:22 | Cardiology Progress Note ---
Date of Encounter: 01/17/18 Time of Encounter: 11:00 Assessment and Plan (1) NSTEMI (non-ST elevated myocardial infarction) Current Visit: Yes Status: Acute Troponins 1.21, 0.80, 0.42, 0.25. Severe ostial LMT lesion, discussed options to tx, PCI vs medical tx, my recommendations for consideration of PCI, long conversations, pt and family agree with plan to transfer [place] [facility] [place] care of [facility], with consult to Dr. John. I reviewed case with Dr. oJhn telephonically, agrees to review cath films. (2) CAD (coronary artery disease) Current Visit: Yes Status: Chronic Severe two vessel CAD with severe stenosis ostial LMT. Discussed options, will transfer to [facility] for further eval, possible PCI wiht Dr. John. Qualifiers: Coronary Disease-Associated Artery/Lesion type: [place] artery [place] vs. transplanted heart: [place] heart Associated angina: with unstable angina Qualified Code(s): I25.110 - Atherosclerotic heart disease of [place] coronary artery with unstable angina pectoris (3) Essential hypertension Current Visit: Yes Status: Chronic Controlled on current meds. Discussion w patient/family: The assessment and plan as outlined above was discussed with the patient and/or family members who expressed understanding and agreement. All questions were answered. Thank you for involving us in the care of your patient. Please call with any questions. Subjective Principal diagnosis: NSTEMI Interval history: Pt reports chest pain has resolved. She 1s very concerned about risks nad benefits of PCI For LMT versus medical tx or CABG. She and her daughter at bedside, and the rest of the family members on speakerphone, voice understanding she is at high risk for any procedure, and high risk for continued medical tx. Objective Vital Signs, Last 4 Hours Pulse Resp BP 01/17/18 11:00 90 17 150/71 General: Conversant, No Apparent Distress HEENT: Atraumatic, Normocephaly, Mucus Membranes Moist Cardiac: Reg Rate and Rhythm, Normal S1 and S2, No Murmur Lungs: Normal Breath Sounds, No Wheeze, Rales, Rhonchi Neuro: Alert and responsive, No focal deficits noted Abdomen: Soft Skin: No rashes noted on visualized skin Musculoskeletal: No Chest Wall Tenderness Extremities: No Clubbing, No Cyanosis, No Edema, Normal Pulses Results 01/17/18 04:44 01/17/18 04:44 Lab Results 01/16/18 01/16/18 01/17/18 15:52 23:05 04:44 WBC 7.3 Hgb 9.6 L Hct 29.2 L Plt Count 213 APTT 51.5 H D 90.1 H D Sodium Potassium Chloride Carbon Dioxide BUN Creatinine Glucose Calcium 01/17/18 01/17/18 04:44 04:44 WBC Hgb Hct Plt Count APTT 79.4 H Sodium 136 Potassium 4.0 Chloride 104 Carbon Dioxide 26 BUN 13 Creatinine 0.82 Glucose 92 Calcium 9.1 - EKG Interpretation EKG results cardiology: personally reviewed Consult Discharge Plan - Plan Referrals: NONE,PCP [Primary Care Provider] -
[2018-01-17 16:22] VITALS: BP 130/68
--- NOTE | 2018-01-19 00:35 | Electrocardiograph Report ---
[address] [place] [address] Test Date: 2018-01-15 Pat Name: Kristi Hayes Department: 111 Room: [id number] Gender: F [employer] Disp[employer]er: : 1940 Requested By: Angel Delgadillo Order Number: [id number] Reading MD: Tammy Elizalde Measurements Intervals [place] Rate: 59 P: 37 VT: 166 QRS: -29 QRSD: 90 T: 97 QT: 495 QTc: 494 Interpretive Statements SINUS BRADYCARDIA LEFT VENTRICULAR HYPERTROPHY AND ST-T CHANGE ANTERIOR MYOCARDIAL INFARCTION, PROBABLY RECENT ACUTE [place] Electronically Signed On 01-19-2018 0:34:17 EDT by Tammy Elizalde
== END 2018-01-17 19:34 | disposition other institution (70) | DRG 281 ==
LOC: 2NENU → OBSVTOIN 18:20
PROVIDERS: ADMIT Internal Medicine; ATTEND Internal Medicine

== ENCOUNTER 2018-06-28 08:17 | Observation (INO) ==
[2018-06-28] MEDS ORDERED: Naloxone 0.4 MG/ML INJ IVP PRN (11:25)
[2018-06-28 14:27] LABS: INR 0.9; Prothrombin Time 10.3 Seconds (9.4-12.1)
[2018-06-28 14:30] LABS: Activated Partial Thrombo Time 33.6 Seconds (26.0-36.0)
[2018-06-28] MEDS ORDERED: *HR* Morphine 2 MG/ML SYRINGE IVP ONE (18:13)
--- NOTE | 2018-06-28 18:16 | Internal Med History&Physical ---
Date of Encounter: 06/28/18 Time of Encounter: 18:13 Internal Medicine - H&P: HPI Chief complaint: fall, back pain. Admitted From: Home Plans for Post Hospital Care: Home History of present illness: Ms. Hayes is a 77 year old female with past medical history of CAD, NSTEMI, HTN, OA, cardiomyopathy, vasovagal episodes, multiple chronic spine fractures that presents s/p fall. Pt states she was feeling as though she was about to have a vasovagal episode. She then tried to get out of the tube and on her way out fell back wards and hit her back. Pt also reports that she is recently getting over a uti. Denies urinary frequency, urgency or dysuria. Denies fever, chills, N/V or diarrhea. Denies CP or SOB. In ED MRI lumbar spine showed MR/MR lumbar spine wo con IMPRESSION: 1. Patient motion degrades images limiting evaluation. 2. There appears to be an acute to subacute compression fracture involving the superior endplate of L2 with likely subacute compression fracture involving L1. 3. Multiple chronic compression fractures are seen involving the lower thoracic and lumbar spine. 4. No significant spinal canal stenosis is seen. 5. Scattered neural foraminal narrowing as above. Past Med Surg Social Fam HX - Past Medical History Medical history: coronary artery disease, hyperlipidemia, hypertension, osteoporosis, thyroid disease Additional medical history: 2 hematoma Psychiatric history: no psych history - Past Surgical History Surgical History: no surgical history Additional surgical history: heart stents - Social History Smoking Status: Never smoker Smokeless Tobacco Status: No Alcohol use: none Drug use: none - Family History Mother Hx Family Cardiac Disorders: Yes (CAD) Hx Family Cancer: Yes (uterine cancer) Hx Family Endocrine Disorder: Yes (DM) Father Hx Family Cardiac Disorders: Yes (CAD) Internal Medicine - H&P: Meds Aspirin Enteric Coated [Aspirin EC] 81 mg PO DAILY 01/15/18 [History] Cholecalciferol (Vitamin D3) [Vitamin D] 1,000 unit PO DAILY 01/15/18 [History] Clopidogrel [Plavix] 75 mg PO DAILY 01/15/18 [History] Docusate [Colace] 100 mg PO DAILY PRN 01/15/18 [History] Famotidine [Heartburn Prevention] 20 mg PO HS 01/15/18 [History] Ivabradine HCl [Corlanor] 2.5 mg PO BID 01/15/18 [History] Levothyroxine Sodium [Levoxyl] 75 mcg PO DAILY 01/15/18 [History] Lisinopril [Zestril] 10 mg PO DAILY 01/15/18 [History] Nitroglycerin [Nitrostat] 0.4 mg SL Q5MIN PRN 01/15/18 [History] 3 Allergy/AdvReac Type Severity Reaction Status Date / Time atenolol Allergy Severe Weakness Verified 01/14/18 20:44 Procaine [From Novocain] Allergy Severe See Verified 01/14/18 20:48 Comments levofloxacin [From Levaquin] Allergy See Verified 01/14/18 20:46 Comments prednisone Allergy See Verified 01/14/18 20:47 Comments ticagrelor [From Brilinta] Allergy Nausea Verified 01/14/18 20:47 All Systems PM: A 10-system review of systems was performed and is negative for pertinent findings except as documented above in the HPI. - Constitutional Vitals: Temp Pulse Resp BP Pulse Ox 98.0 F 62 17 95/60 95 06/28/18 14:54 06/28/18 14:54 06/28/18 14:54 06/28/18 14:54 06/28/18 14:54 General appearance: Present: A&O X 3, no acute distress Exam: . - Head Head exam: Present: atraumatic, normocephalic - Eye Eye exam: Present: PERRL, conjuntiva pink, sclera anicteric Pupils: Present: PERRL - Neck Neck exam general surgery: Present: supple, trachea midline. Absent: lymphadenopathy - Respiratory Respiratory exam: Present: CTAB. Absent: accessory muscle use, rales, rhonchi, wheezes - Cardiovascular Cardiovascular exam: Present: RRR, +S1, +S2. Absent: diastolic murmur, gallop, rubs, systolic murmur - GI/Abdominal GI/Abdominal exam: Present: normal bowel sounds, soft, no peritoneal signs. Absent: distended, tenderness - Extremities Exam Extremities exam: Present: warm, radial pulses palpable and symmetrical. Absent : calf tenderness, cyanotic, pedal edema - Back Exam Back exam: Present: vertebral tenderness Additional comments: lumbar vertebral tenderness. - Neurological Exam Neurological exam: Present: CN II-XII intact, oriented X3, no focal deficits. Absent: pronater drift, facial droop, speech deficit - Skin Skin exam: Present: dry, intact Internal Med - H&P Results - Impressions ITS Impressions Lumbar Spine MRI 06/28/18 13:41 IMPRESSION: 1. Patient motion degrades images limiting evaluation. 2. There appears to be an acute to subacute compression fracture involving the superior endplate of L2 with likely subacute compression fracture involving L1. 3. Multiple chronic compression fractures are seen involving the lower thoracic and lumbar spine. 4. No significant spinal canal stenosis is seen. 5. Scattered neural foraminal narrowing as above. D/ / Troy Duque MD / Troy Duque MD Interpreting Provider: Troy Duque MD Chest X-Ray 06/28/18 13:43 IMPRESSION: No acute findings. D/ / 06/28/2018 14:59:29 Joe Holt MD / [facility] Interpreting Provider: Joe Holt MD - Assessment and plan (1) Lumbar vertebral fracture Current Visit: Yes Status: Acute Assessment and plan: prn pain control. Will place on medrol dose pack and flexeril as well. Will reassess in am. Qualifiers: Qualified Code(s): S32.009A - Unspecified fracture of unspecified lumbar vertebra, initial encounter for closed fracture (2) Essential hypertension Current Visit: No Status: Chronic Assessment and plan: Resume home dose Lisinopril (3) Osteoporosis Current Visit: No Status: Chronic Assessment and plan: vitamin D Qualifiers: Osteoporosis type: age-related Presence of current pathological fracture: unspecified Qualified Code(s): M81.0 - Age-related osteoporosis without current pathological fracture (4) Vasovagal episode Current Visit: No Status: Resolved Assessment and plan: Chronic - Time Spent With Patient Total time spent is greater than 50% in coordination of care (as documented) at patient's floor/unit and/or counseling patient: 25 - 35 minutes
[2018-06-28] MEDS ORDERED: Nitroglycerin 0.4 MG TAB.SUBL SL PRN (18:29)
[2018-06-28] MEDS ORDERED: *HR* HYDROcodone/Acet 7.5/325 mg TABLET PO PRN (18:40)
[2018-06-28 19:36] LABS: Hematocrit 31.2 % (35.3-44.9); Hemoglobin 10.4 g/dL (11.5-15.4); Mean Corpuscular HGB Conc 33.3 g/dL (31.6-35.5); Mean Corpuscular Hemoglobin 32.6 pg (28.0-33.3); Mean Corpuscular Volume 97.8 fL (83.0-100.0); Platelet Count 329 K/mcL (140-400); Red Blood Count 3.19 M/mcL (3.82-4.97); Red Cell Distribution Width 14.3 % (11.5-14.5)
[2018-06-28 19:57] LABS: BUN/Creatinine Ratio 26 (6-26); Blood Urea Nitrogen 23 mg/dL (8-23); Calcium 9.6 mg/dL (8.6-10.3); Carbon Dioxide 27 mEq/L (23-29); Chloride 101 mEq/L (98-107); Glucose 98 mg/dL (70-105); Osmolality,Calculated 278 (280-300); Potassium 4.5 mEq/L (3.5-5.1); Sodium 132 mEq/L (136-145); eGFR For Non-African Americans > 60 (> 60)
[2018-06-28] MEDS ORDERED: Famotidine 20 MG TABLET PO SCH (21:00)
[2018-06-29 01:43] LABS: Basophils % 0.4 %; Eosinophils # 0.3 K/mcL (0.0-0.6); Eosinophils % 3.5 %; Hematocrit 30.6 % (35.3-44.9); Immature Granulocytes % 0.4 % (0-4); Lymphocytes # 2.4 K/mcL (0.6-4.6); Lymphocytes % 25.3 %; Mean Corpuscular HGB Conc 32.7 g/dL (31.6-35.5); Mean Corpuscular Hemoglobin 31.9 pg (28.0-33.3); Mean Corpuscular Volume 97.8 fL (83.0-100.0); Mean Platelet Volume 10.1 fL (9.4-12.4); Monocytes # 1.2 K/mcL (0.0-1.3); Monocytes % 12.5 %; Neutrophils # 5.4 K/mcL (1.6-8.9); Platelet Count 331 K/mcL (140-400); Red Blood Count 3.13 M/mcL (3.82-4.97); Red Cell Distribution Width 14.5 % (11.5-14.5); Segmented Neutrophils % 57.9 %
[2018-06-29 02:12] LABS: BUN/Creatinine Ratio 31 (6-26); Blood Urea Nitrogen 30 mg/dL (8-23); Calcium 9.5 mg/dL (8.6-10.3); Carbon Dioxide 23 mEq/L (23-29); Chloride 102 mEq/L (98-107); Glucose 97 mg/dL (70-105); Osmolality,Calculated 278 (280-300); Potassium 5.3 mEq/L (3.5-5.1); Sodium 131 mEq/L (136-145); eGFR For Non-African Americans 56 (> 60)
[2018-06-29] MEDS: Cholecalciferol (D-3) 1,000 UNIT TABLET PO SCH (08:43)
[2018-06-29] MEDS: Aspirin Enteric Coated 81 MG Tablet PO SCH (08:43)
--- NOTE | 2018-06-29 08:44 | Spine Progress Note ---
Date of Encounter: 06/29/18 Time of Encounter: 08:41 Subjective Principal diagnosis: Vertebral compression fractures, osteopenia Interval history: Patient is 77-year-old female who had a fall and experienced severe back pain. She was brought in from outside institution emergency department for definitive management. She complained of severe thoracolumbar back pain in poor mobility secondary to her discomfort. This is despite analgesic medication. She denies any bowel bladder symptomatology radicular symptoms of the lower extremities. On exam she was afebrile in obvious distress secondary to back pain. She is neurovascularly intact with regard to bilateral upper and lower extremities. She has tenderness to palpation along the midline in the posterior thoracic or lumbar region. She had no clubbing cyanosis or edema. Her hips move symmetrically. MRI of the lumbar spine reveals multilevel degenerative changes. There is evidence of chronic appearing impression fractures in the lumbar and thoracic region. There are 2 acute/subacute compression fractures at L1 and L2 respectively. Impression: 1) osteopenia 2) vertebral compression fractures acute at L1 and L2 Plan: Due to her failure nonoperative treatment I find it reasonable consider surgery in the form of kyphoplasty L1 and L2. Risk benefits and possible complications were discussed and the patient would like to proceed. She understands she must have medical clearance and optimization prior to surgical intervention. Objective Vital signs: Vital Signs Temp Pulse Resp BP Pulse Ox 06/29/18 06:32 98.1 F 64 16 114/53 95 06/29/18 03:36 98.1 F 52 16 110/46 96 06/29/18 00:08 97.6 F 51 17 112/62 96 06/28/18 22:02 98.3 F 63 18 108/54 94 06/28/18 14:54 98.0 F 62 17 95/60 95 06/28/18 11:00 98.8 F 51 16 105/62 96 Intake and Output 06/28/18 06/29/18 06/29/18 23:59 07:59 15:59 Output Total 250 / 250 Balance -250 / -250 Output: Urine 250 / 250 Other: Meal snack, ice cream Percent of Meal Consumed 100% Weight 61.3 kg Patient Weight 06/29/18 23:59 Weight 61.3 kg - Labs CBC & BMP: 06/29/18 01:09 06/29/18 01:09 Labs: Abnormal lab results RBC 3.13 M/mcL (3.82-4.97) L 06/29/18 01:09 Hgb 10.0 g/dL (11.5-15.4) L 06/29/18 01:09 Hct 30.6 % (35.3-44.9) L 06/29/18 01:09 Sodium 131 mEq/L (136-145) L 06/29/18 01:09 Potassium 5.3 mEq/L (3.5-5.1) H 06/29/18 01:09 BUN 30 mg/dL (8-23) H 06/29/18 01:09 Est GFR (Non-Af Amer) 56 (> 60) L 06/29/18 01:09 BUN/Creatinine Ratio 31 (6-26) H 06/29/18 01:09 Calculated Osmolality 278 (280-300) L 06/29/18 01:09 Consult Discharge Plan - Plan Referrals: Genevieve Starks, HARD TILE SETTER APPRENTICE [Primary Care Provider] -
--- NOTE | 2018-06-29 09:30 | Event Note ---
Date of Encounter: 06/29/18 Time of Encounter: 09:13 Pre-operative evaluation. Kristi Hayes is a 77 year old female with past medical history of CAD, HTN, HLD , and cardiomyopathy. Pt is s/p NSTEMI 01/15/18. cardiac cath 01/15/2018 Impression: There is severe one vessel coronary artery disease. There is moderate to severe distal stent edge disease in the mid LAD. The mid to distal LAD is diffusely diseased Previous FFR of the ostial Left Main was .[address] Salgado hence non selective LCA shots taken Ostial Left Main highly tortuous and angulated. Recommendations: Optimal medical therapy of patient's disease. Aggressive risk factor modification. Suggest patient have Elective coronary artery bypass surgery vs. High risk PCI May consider LAD PCI however currently has 2 layers of stents in the LAD immediaetly above lesion. Echo 01/14/18 EV/EV echocardiogram Impressions: LVEF 40%. Mild left ventricular diastolic dysfunction. Normal right ventricular structure and function. Mildly dilated left atrium. Mild-moderate aortic regurgitation. The aortic root is mildly dilated. Due to significant hx of CAD, we'll request cardiology consult for pre-op eval./ /
--- NOTE | 2018-06-29 09:40 | Electrocardiograph Report ---
[address] [address] Test Date: 2018-06-28 Pat Name: Kristi Hayes Department: 114 Room: [facility] Gender: F Transport Driver: XOCHITL : 1940 Requested By: Alana Carlson Order Number: [id number] Reading MD: Fletcher Fernandez Measurements Intervals [place] Rate: 49 P: 31 CA: 164 QRS: -25 QRSD: 86 T: 48 QT: 429 QTc: 400 Interpretive Statements SINUS BRADYCARDIA WITH OCCASIONAL VENTRICULAR PREMATURE COMPLEXES BORDERLINE LEFT AXIS DEVIATION VOLTAGE CRITERIA FOR LVH NONSPECIFIC T-WAVE ABNORMALITY Electronically Signed On 06-29-2018 9:38:49 EDT by Fletcher Fernandez
--- NOTE | 2018-06-29 14:53 | Cardiology Consult Note ---
Date of Encounter: 06/29/18 Time of Encounter: 14:34 Assessment and Plan (1) Preoperative cardiovascular examination Current Visit: Yes Status: Acute Patients with poor functional status able to perform less than 4 METs. She does not of active cardiac condition at this time however she has significant coronary artery disease particularly left main disease. The CD of Coronary angiogram done at [facility] was reviewed with glove examiner and it still shows severe left main disease even though iFR was reported as 0.98. Given that patient has significant left main coronary artery disease which has not been revascularized, patient is at high risk for major cardiac events during surgery especially if surgery is done under general anesthesia. Discussed with patient and daughter; as well as Dr. Weeks (spine surgeon) at the bedside. (2) CAD (coronary artery disease) Current Visit: No Status: Chronic Asymptomatic at rest. EKG does not show acute ST-T wave changes. Continue aspirin, plavix, moderate dose statin, ACEI. Qualifiers: Coronary Disease-Associated Artery/Lesion type: [place] artery [place] vs. transplanted heart: [place] heart Associated angina: with unstable angina Qualified Code(s): I25.110 - Atherosclerotic heart disease of [place] coronary artery with unstable angina pectoris (3) Essential hypertension Current Visit: No Status: Chronic Patient is at goal blood pressure of less than 130/80. Continue lisinopril 5 mg daily. Discussion w patient/family: The assessment and plan as outlined above was discussed with the patient and/or family members who expressed understanding and agreement. All questions were answered. Thank you for involving us in the care of your patient. Please call with any questions. History of Present Illness Consult date: 06/29/18 Requesting physician: Eliza Lea Consult reason: Preoperative cardiovascular examination History of present illness: Ms. Hayes is a very pleasant 77 year old female with a history of hypertension, hyperlipidemia, osteoporosis, CAD status post stents. She has had a PCI and ALIYA of mid LAD and proximal first diagonal artery in 2013. A left heart cath done in July 2016 showed severe ostial left main stenosis and moderate stenosis of the RCA for which a high risk PCI was done with a 3.5 x 9mm drug- eluting stent placed in the left main coronary artery. She had NSTEMI in January this year and received coronary angiogram which showed 55-60% ostial left main disease as well as 60% mid LAD disease. FFR of left main lesion was 0.78, echo showed EF of 40% with multiple wall motion abnormalities. Patient was subsequently referred to [facility] for possible high risk PCI versus bypass surgery. However, at [facility] patient underwent LHC and was told that left main disease was not hemodynamically significant. Additionally an echocardiogram was done with ejection fraction of 60% reported. Patient's subsequently did not receive any intervention and was being medically managed which consists of dual antiplatelet, statin, ACEI and Nitrostat prn. She can only walk up 2 steps before she begins to feel short of breath. 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 She denies chest pain, palpitations, or shortness of breath at rest. She was admitted for lumbar fracture following a fall 2 days ago. MRI of the lumbar spine reveals multilevel degenerative changes. There is evidence of chronic appearing impression fractures in the lumbar and thoracic region. There are 2 acute/subacute compression fractures at L1 and L2 respectively. She is being scheduled for L1 and L2 kyphoplasty tomorrow. Past Med Surg Social Fam HX - Past Medical History Medical history: coronary artery disease, hyperlipidemia, hypertension, osteoporosis, thyroid disease Additional medical history: 2 hematoma Psychiatric history: no psych history - Past Surgical History Surgical History: no surgical history Additional surgical history: heart stents - Social History Smoking Status: Never smoker Smokeless Tobacco Status: No Alcohol use: none Drug use: none - Family History Mother Hx Family Cardiac Disorders: Yes (CAD) Hx Family Cancer: Yes (uterine cancer) Hx Family Endocrine Disorder: Yes (DM) Father Hx Family Cardiac Disorders: Yes (CAD) Medications and Allergies Aspirin Enteric Coated [Aspirin EC] 81 mg PO DAILY 01/15/18 [History] Cholecalciferol (Vitamin D3) [Vitamin D] 3,000 unit PO DAILY 01/15/18 [History] Clopidogrel [Plavix] 75 mg PO DAILY 01/15/18 [History] Docusate [Colace] 100 mg PO DAILY PRN 01/15/18 [History] Famotidine [Heartburn Prevention] 20 mg PO HS 01/15/18 [History] Nitroglycerin [Nitrostat] 0.4 mg SL Q5MIN PRN 01/15/18 [History] Acetaminophen [Tylenol] 1,000 mg PO Q4H PRN 06/29/18 [History] Calcium Carbonate [Calcium] 500 mg PO TID 06/29/18 [History] Levothyroxine [Synthroid] 50 mcg PO 0630 06/29/18 [History] Lisinopril [Zestril] 5 mg PO DAILY PRN 06/29/18 [History] Rosuvastatin Calcium [Crestor] 2.5 mg PO HS 06/29/18 [History] 3 Allergy/AdvReac Type Severity Reaction Status Date / Time Procaine [From Novocain] Allergy Severe See Verified 06/29/18 10:43 Comments levofloxacin [From Levaquin] Allergy See Verified 06/29/18 10:43 Comments prednisone Allergy See Verified 06/29/18 10:43 Comments atenolol AdvReac Severe Weakness Verified 06/29/18 10:43 ticagrelor [From Brilinta] AdvReac Nausea Verified 06/29/18 10:43 All Systems Review: The remainder of the systems were reviewed and are negative - Constitutional Constitutional: frequent falls, no anorexia, no chills, no fever(s) - EENT Eyes: no loss of vision Nose, mouth and throat: no bleeding gums, no odynophagia - Cardiovascular Cardiovascular: no irregular heart rhythm, no orthopnea, no paroxysmal nocturnal dyspnea, no syncope - Respiratory Respiratory: no cough, no hemoptysis - Gastrointestinal Gastrointestinal: no abdominal pain - Genitourinary Genitourinary: no dysuria - Musculoskeletal Musculoskeletal: back pain - Integumentary Integumentary: no erythema - Neurological Neurological: no abnormal speech, no loss of vision, no syncope - Psychiatric Psychiatric: no anxiety Physical Examination General: Conversant HEENT: Atraumatic Neck: No JVD Cardiac: Reg Rate and Rhythm Lungs: Normal Breath Sounds, No Wheeze, Rales, Rhonchi Neuro: Alert and responsive Abdomen: Soft Musculoskeletal: Other (Back tenderness) Extremities: Other (Mild pedal edema) Results 06/29/18 01:09 06/29/18 01:09 Lab Results 06/28/18 06/28/18 06/29/18 18:58 18:58 01:09 WBC 8.7 9.3 Hgb 10.4 L 10.0 L Hct 31.2 L 30.6 L Plt Count 329 331 Sodium 132 L Potassium 4.5 Chloride 101 Carbon Dioxide 27 BUN 23 Creatinine 0.88 Glucose 98 Calcium 9.6 06/29/18 01:09 WBC Hgb Hct Plt Count Sodium 131 L Potassium 5.3 H Chloride 102 Carbon Dioxide 23 BUN 30 H Creatinine 0.96 Glucose 97 Calcium 9.5 - EKG Interpretation EKG results cardiology: personally reviewed (Sinus rhythm, PVC,left axis deviation and LVH) Consult Discharge Plan - Plan Referrals: Genevieve Starks, SCHOOL EXAMINER [Primary Care Provider] -
--- NOTE | 2018-06-29 15:48 | Internal Med Progress Note ---
Hospitalist Progress Note - Encounter Date of Encounter: 06/29/18 Time of Encounter: 15:48 - Subjective Interval History: I had lengthy discussion with daughter and pt regarding pain medication. Pt states morphine helps and she was given 2mg in the past. I explained to pt that morphine is on shortage at the hospital at the moment. Discussed PO options such as norco and morphine SL. Also offered medrol but pt states she had superficial DVT's in the past while on prednisone. Pt was also offered flexeril and states she was told in the past by her PCP not to take it because of her heart. Flexeril is only ordered as needed. She does have documented hx of cardiac arrhythmias, conduction disturbances, or congestive heart failure and is not in acute phase of recovery from myocardial infarction. Also offered Baclofen as an alternative but pt preferred flexeril instead. Denies urinary frequency, urgency or dysuria. Denies fever, chills, N/V or diarrhea. Denies CP or SOB. - Exam Vitals: Temp Pulse Resp BP Pulse Ox 98.3 F 74 16 107/63 95 06/29/18 14:00 06/29/18 14:00 06/29/18 14:00 06/29/18 14:00 06/29/18 14:00 Exam: . - Assessment and Plan (1) Lumbar vertebral fracture Current Visit: Yes Status: Acute Assessment and Plan: prn pain control. Did not start medrol dose pack because pt states she developed superficial thrombosis on prednisone in the past. She states she will try Flexeril prn QHS. Pt requesting josemanuel pain control. Will josemanuel norco for now. Will reassess in am. Daughter at bedside aware of current plan and agreeable. (2) Essential hypertension Current Visit: No Status: Chronic Assessment and Plan: Lisinopril (3) Osteoporosis Current Visit: No Status: Chronic Assessment and Plan: prn pain control (4) Vasovagal episode Current Visit: No Status: Resolved DVT Prophylaxis: Lovenox - Summary of Assessment and Plan Summary of Assessment and Plan: Ms. Hayes is a 77 year old female with past medical history of CAD, NSTEMI, HTN, OA, cardiomyopathy, vasovagal episodes, multiple chronic spine fractures that presents s/p fall. Pt states she was feeling as though she was about to have a vasovagal episode. She then tried to get out of the tube and on her way out fell back wards and hit her back. In ED MRI lumbar spine showed MR/MR lumbar spine wo con IMPRESSION: 1. Patient motion degrades images limiting evaluation. 2. There appears to be an acute to subacute compression fracture involving the superior endplate of L2 with likely subacute compression fracture involving L1. 3. Multiple chronic compression fractures are seen involving the lower thoracic and lumbar spine. 4. No significant spinal canal stenosis is seen. 5. Scattered neural foraminal narrowing as above. - Time Spent with Patient Total time spent is greater than 50% in coordination of care (as documented) at patient's floor/unit and/or counseling patient: 25 - 35 minutes Plan of Care Discussed with: patient Internal Medicine: Result - Labs CBC & Chem 7: 06/29/18 01:09 06/29/18 01:09 Labs: Short CBC 06/28/18 06/29/18 Range/Units 18:58 01:09 WBC 8.7 9.3 (4.3-11.1) K/mcL Hgb 10.4 L 10.0 L (11.5-15.4) g/dL Hct 31.2 L 30.6 L (35.3-44.9) % Plt Count 329 331 (140-400) K/mcL Neutrophils # 5.4 (1.6-8.9) K/mcL BMP 06/28/18 06/29/18 18:58 01:09 Sodium 132 L 131 L Potassium 4.5 5.3 H Chloride 101 102 Carbon Dioxide 27 23 BUN 23 30 H Creatinine 0.88 0.96 Glucose 98 97 Calcium 9.6 9.5 - ABG Interpretation ABG results: PT/INR, D-dimer PT 10.3 Seconds (9.4-12.1) 06/28/18 13:59 - Impressions Impressions Lumbar Spine MRI 06/28/18 13:41 IMPRESSION: 1. Patient motion degrades images limiting evaluation. 2. There appears to be an acute to subacute compression fracture involving the superior endplate of L2 with likely subacute compression fracture involving L1. 3. Multiple chronic compression fractures are seen involving the lower thoracic and lumbar spine. 4. No significant spinal canal stenosis is seen. 5. Scattered neural foraminal narrowing as above. D/ / Troy Duque MD / Troy Duque MD Interpreting Provider: Troy Duque MD Chest X-Ray 06/28/18 13:43 IMPRESSION: No acute findings. D/ / 06/28/2018 14:59:29 Joe Holt MD / [facility] Interpreting Provider: Joe Holt MD Consult Discharge Plan - Plan Referrals: Genevieve Starks, EXCEL ANALYST [Primary Care Provider] - (1) Lumbar vertebral fracture Qualifiers: Lumbar vertebra fracture level: L2 (3) Osteoporosis Qualifiers: Osteoporosis type: age-related Presence of current pathological fracture: unspecified Qualified Code(s): M81.0 - Age-related osteoporosis without current pathological fracture
[2018-06-29] MEDS: Famotidine 20 MG TABLET PO SCH (20:56)
[2018-06-29 22:26] LABS: Bilirubin,Urine Negative (Negative); Blood,Urine Negative (Negative); Clarity,Urine Clear (Clear); Color,Urine Yellow (Yellow); Glucose,Urine (UA) 100 mg/dL (Normal); Ketones,Urine Negative (Negative); Leukocyte Esterase,Urine Moderate (Negative); Nitrite,Urine Negative (Negative); Protein,Urine Negative (Neg-Trace); Urobilinogen,Urine Normal (Normal)
[2018-06-29 22:29] LABS: Bacteria,Urine None Seen per hpf (None-Few); Hyaline Casts,Urine None Seen per lpf (None-Few); RBC,Urine 0-3 per hpf (0-3); Squamous Epithelial Cell,Urine Few per lpf (None-Few)
[2018-06-29] MEDS: *HR* HYDROcodone/Acet 7.5/325 mg TABLET PO SCH (23:59)
[2018-06-30 04:06] LABS: Basophils # 0.1 K/mcL (0.0-0.2); Basophils % 0.7 %; Eosinophils # 0.3 K/mcL (0.0-0.6); Eosinophils % 4.9 %; Hematocrit 30.9 % (35.3-44.9); Hemoglobin 10.4 g/dL (11.5-15.4); Immature Granulocytes % 0.3 % (0-4); Lymphocytes # 2.1 K/mcL (0.6-4.6); Lymphocytes % 29.8 %; Mean Corpuscular HGB Conc 33.7 g/dL (31.6-35.5); Mean Corpuscular Hemoglobin 32.8 pg (28.0-33.3); Mean Corpuscular Volume 97.5 fL (83.0-100.0); Mean Platelet Volume 9.9 fL (9.4-12.4); Monocytes # 0.9 K/mcL (0.0-1.3); Monocytes % 13.2 %; Neutrophils # 3.5 K/mcL (1.6-8.9); Platelet Count 325 K/mcL (140-400); Red Blood Count 3.17 M/mcL (3.82-4.97); Red Cell Distribution Width 14.3 % (11.5-14.5); Segmented Neutrophils % 51.1 %
[2018-06-30 04:25] LABS: BUN/Creatinine Ratio 31 (6-26); Blood Urea Nitrogen 24 mg/dL (8-23); Calcium 9.4 mg/dL (8.6-10.3); Carbon Dioxide 26 mEq/L (23-29); Chloride 102 mEq/L (98-107); Glucose 84 mg/dL (70-105); Osmolality,Calculated 281 (280-300); Potassium 5.1 mEq/L (3.5-5.1); Sodium 134 mEq/L (136-145); eGFR For Non-African Americans > 60 (> 60)
[2018-06-30] MEDS: Ketorolac 15 MG/ML VIAL IVP PRN ×2 (04:33→10:23)
[2018-06-30] MEDS: *HR* HYDROcodone/Acet 7.5/325 mg TABLET PO SCH ×3 (06:16→17:49)
[2018-06-30] MEDS: Aspirin Enteric Coated 81 MG Tablet PO SCH (10:04)
[2018-06-30] MEDS: *HR* Enoxaparin 30 MG/0.3 ML SYRINGE SQ SCH (10:06)
[2018-06-30] MEDS: Cholecalciferol (D-3) 1,000 UNIT TABLET PO SCH (10:06)
--- NOTE | 2018-06-30 17:10 | Discharge Summary ---
- NOTES TO OUTPATIENT PROVIDER Notes to Outpatient Provider: PCP in 5 to 7 days Orders not resulted at time of discharge: Pending orders 06/29/18 22:10 Culture,Urine [RM] Routine Date of Encounter: 06/30/18 Time of Encounter: 17:05 - Discharge Diagnosis (1) Lumbar vertebral fracture Priority: Primary Status: Acute Assessment and Plan: prn pain control. Scheduled pain control. Scheduled [place] and toradol prn added as well. Did not start medrol dose pack because pt states she developed superficial thrombosis on prednisone in the past. She states she will try Flexeril QHS prn. Pt requested IV morphine initilaly but then explained to her that morphine is on shortage at this facility. SHe did get 2-3 one time doses of it. Pt states IV Toradol much helpful for pain control overall. Qualifiers: Lumbar vertebra fracture level: L2 Qualified Code(s): S32.020A - Wedge compression fracture of second lumbar vertebra, initial encounter for closed fracture (2) Essential hypertension Priority: Secondary Status: Chronic Assessment and Plan: Lisinopril (3) Osteoporosis Priority: Secondary Status: Chronic Qualifiers: Osteoporosis type: age-related Presence of current pathological fracture: unspecified Qualified Code(s): M81.0 - Age-related osteoporosis without current pathological fracture (4) Vasovagal episode Priority: Secondary Status: Chronic Hospital course: Ms. Hayes is a 77 year old female with past medical history of CAD, NSTEMI, HTN, OA, cardiomyopathy, vasovagal episodes, multiple chronic spine fractures that presents s/p fall. Pt states she was feeling as though she was about to have a vasovagal episode. She then tried to get out of the tube and on her way out fell back wards and hit her back. Pt was seen by orthopedic spine and the yodit was to take her for kyphoplasty L1 and L2. Pre-operative evaluation revealed that pt was admitted here 01/2018 for NSTEMI and at that time [facility] showed severe left main disease of about 55-60%. Elective coronary artery bypass surgery vs. High risk PCI was offered but instead pt cinthya to a different facility 01/2018, [facility] in [place]. Cardiology was consulted for pre-op cardiac evaluation and they reviewed records from [facility]. Apparently pt did not get any intervention at [facility] because LHC cath was repeated and pt was informed it was shadowing and not realling svere LM disease. Cardiology here reviewed the LHC from [facility] and still believes this is severe LM disease. Hence this puts pt at high risk for the procedure. Ortho therefore held off on doing the procedure and recommended conservative management since spine is not unstable and there is no clear indication for emergent surgery. Notified by nurse that pt and family want her transferred to [facility] ([facility]) for third opinion regarding severity of left main disease. Called [facility] transfer center and spoke with Dr. Doty who has agreed to accept the pt to cardiology service. In ED MRI lumbar spine showed MR/MR lumbar spine wo con IMPRESSION: 1. Patient motion degrades images limiting evaluation. 2. There appears to be an acute to subacute compression fracture involving the superior endplate of L2 with likely subacute compression fracture involving L1. 3. Multiple chronic compression fractures are seen involving the lower thoracic and lumbar spine. 4. No significant spinal canal stenosis is seen. 5. Scattered neural foraminal narrowing as above. CODE STATUS FULL. Discharge discussed with: patient - Time Spent with Patient Total time spent providing and/or coordinating discharge services: Greater than 30 minutes - Discharge Medications Home Medications: Aspirin Enteric Coated [Aspirin EC] 81 mg PO DAILY 01/15/18 [History] Cholecalciferol (Vitamin D3) [Vitamin D3] 3,000 unit PO DAILY 01/15/18 [History] Clopidogrel [Plavix] 75 mg PO DAILY 01/15/18 [History] Docusate [Colace] 100 mg PO DAILY PRN 01/15/18 [History] Famotidine [Heartburn Prevention] 20 mg PO HS 01/15/18 [History] Nitroglycerin [Nitrostat] 0.4 mg SL Q5MIN PRN 01/15/18 [History] Acetaminophen [Tylenol] 1,000 mg PO Q4H PRN 06/29/18 [History] Calcium Carbonate [Calcium] 500 mg PO TID 06/29/18 [History] Levothyroxine [Synthroid] 50 mcg PO 0630 06/29/18 [History] Lisinopril [Zestril] 5 mg PO DAILY PRN 06/29/18 [History] Rosuvastatin Calcium [Crestor] 2.5 mg PO HS 06/29/18 [History] Allergies/Adverse Reactions: 3 Allergy/AdvReac Type Severity Reaction Status Date / Time Procaine [From Novocain] Allergy Severe See Verified 06/29/18 10:43 Comments levofloxacin [From Levaquin] Allergy See Verified 06/29/18 10:43 Comments prednisone Allergy See Verified 06/29/18 10:43 Comments atenolol AdvReac Severe Weakness Verified 06/29/18 10:43 ticagrelor [From Brilinta] AdvReac Nausea Verified 06/29/18 10:43 Date of admission: 06/28/18 10:32 Primary care physician: Genevieve Starks CNP Consults: 06/29/18 09:17 Consult to Cardiology [CONS] Routine Comment: Consulting Provider: José Miguel Warner Reason for Consult: pre-op cardiac evaluation Call Completed: Yes 06/29/18 19:40 Consult to Physical Therapy [CONS] Routine Comment: Evaluate, develop and implement POC Reason for Consult: deconditioning Does patient have active BEDREST order?: No Is patient medically & hemodynamically stable?: Yes Patient assessed for mobility or mobilized this visit?: No Discharging clinician: Eliza Lea Anticipated date of discharge: 06/30/18 - Constitutional Vitals: Temp Pulse Resp BP Pulse Ox 98.2 F 65 16 129/68 95 06/30/18 15:20 06/30/18 15:20 06/30/18 15:20 06/30/18 09:42 06/30/18 15:20 General appearance: Present: A&O X 3, no acute distress Exam: . - Head Head exam: Present: atraumatic, normocephalic - Eye Eye exam: Present: PERRL, conjuntiva pink, sclera anicteric Pupils: Present: PERRL - Neck Neck exam general surgery: Present: supple, trachea midline. Absent: lymphadenopathy - Respiratory Respiratory exam: Present: CTAB. Absent: accessory muscle use, rales, rhonchi, wheezes - Cardiovascular Cardiovascular exam: Present: RRR, +S1, +S2. Absent: diastolic murmur, gallop, rubs, systolic murmur - GI/Abdominal GI/Abdominal exam: Present: normal bowel sounds, soft, no peritoneal signs. Absent: distended, tenderness - Extremities Exam Extremities exam: Present: warm, radial pulses palpable and symmetrical. Absent : calf tenderness, cyanotic, pedal edema - Neurological Exam Neurological exam: Present: CN II-XII intact, oriented X3, no focal deficits. Absent: pronater drift, facial droop, speech deficit - Skin Skin exam: Present: dry, intact - Patient Status Disposition: Transfer Intermediate Care Fac Condition: Fair Overall status at discharge: patient is progressing back to baseline - Discharge Instructions Follow Up With: Genevieve Stakrs REAL ESTATE ASSOCIATE ATTORNEY [Primary Care Provider] - - Diet and Activity Activity: as per physical therapy Diet: low fat, low cholesterol
[2018-06-30] MEDS: Famotidine 20 MG TABLET PO SCH (19:28)
[2018-07-01] MEDS: *HR* HYDROcodone/Acet 7.5/325 mg TABLET PO SCH ×3 (02:32→12:35)
[2018-07-01] MEDS: Cholecalciferol (D-3) 1,000 UNIT TABLET PO SCH (08:13)
[2018-07-01] MEDS: Aspirin Enteric Coated 81 MG Tablet PO SCH (08:14)
[2018-07-01] MEDS: *HR* Enoxaparin 30 MG/0.3 ML SYRINGE SQ SCH (08:14)
--- NOTE | 2018-07-01 09:13 | Internal Med Progress Note ---
Hospitalist Progress Note - Encounter Date of Encounter: 07/01/18 Time of Encounter: 10:40 - Subjective Interval History: I had lengthy discussion with daughter and pt regarding pain medication. Pt states morphine helps and she was given 2 mg in the past. I explained to pt that morphine is on shortage at the hospital at the moment. Discussed PO options such as norco and morphine SL. Daughter stated they did not want her on anything too strong and agreed to scheduled norco. I also added prn Toradol which pt called " miracle drug." Pt states she gets mos relief from Toradol. Also offered medrol but pt states she had "superficial DVT's" in the past while on prednisone. Pt was also offered flexeril and states she was told in the past by her PCP not to take it because of her heart. Flexeril is only ordered as needed. She does have documented hx of cardiac arrhythmias, conduction disturbances, or congestive heart failure and is not in acute phase of recovery from myocardial infarction. Also offered Baclofen as an alternative but pt preferred flexeril instead. Denies urinary frequency, urgency or dysuria. Denies fever, chills, N/V or diarrhea. Denies CP or SOB. - Exam Vitals: Temp Pulse Resp BP Pulse Ox 97.7 F 51 15 127/59 98 07/01/18 06:53 07/01/18 06:53 07/01/18 06:53 07/01/18 06:53 07/01/18 08:30 Exam: . - Assessment and Plan (1) Lumbar vertebral fracture Current Visit: Yes Status: Acute Assessment and Plan: Had lengthy discussion with pt's daughter. Marshall had been scheduled and Toradol was added as prn 06/29/18. Flexeril was also added QHS. Daughter stated today that pt had not been getting Marshall scheduled. Did not start medrol dose pack because pt states she developed superficial thrombosis on prednisone in the past. She states she will try Flexeril QHS prn. Pt requested IV morphine initially but then explained to her that morphine is on shortage at this facility. She did get 2-3 one time doses of it. Pt states IV Toradol much helpful for pain control overall. Discussed consulting palliative care and family agreeable. Discussed with palliative care and will see pt in consult. (2) Essential hypertension Current Visit: No Status: Chronic Assessment and Plan: Lisinopril (3) Osteoporosis Current Visit: No Status: Chronic (4) Vasovagal episode Current Visit: No Status: Chronic Assessment and Plan: Chronic (5) Hip pain Current Visit: Yes Status: Acute Assessment and Plan: Per daughter, pt complaining of hip pain today. Pt had not complained of hip pain to me since being admitted. in light of recent fall, will check x ray B/L hip. DVT Prophylaxis: Lovenox - Summary of Assessment and Plan Summary of Assessment and Plan: Ms. Hayes is a 77 year old female with past medical history of CAD, NSTEMI, HTN, OA, cardiomyopathy, vasovagal episodes, multiple chronic spine fractures that presents s/p fall. Pt states she was feeling as though she was about to have a vasovagal episode. She then tried to get out of the tube and on her way out fell back wards and hit her back. In ED MRI lumbar spine showed MR/MR lumbar spine wo con IMPRESSION: 1. Patient motion degrades images limiting evaluation. 2. There appears to be an acute to subacute compression fracture involving the superior endplate of L2 with likely subacute compression fracture involving L1. 3. Multiple chronic compression fractures are seen involving the lower thoracic and lumbar spine. 4. No significant spinal canal stenosis is seen. 5. Scattered neural foraminal narrowing as above. - Time Spent with Patient Total time spent is greater than 50% in coordination of care (as documented) at patient's floor/unit and/or counseling patient: 25 - 35 minutes Plan of Care Discussed with: family Internal Medicine: Result - Labs CBC & Chem 7: 06/30/18 03:52 06/30/18 03:52 - ABG Interpretation ABG results: PT/INR, D-dimer PT 10.3 Seconds (9.4-12.1) 06/28/18 13:59 Consult Discharge Plan - Plan Referrals: Genevieve Starks, PROGRAM SPECIALIST [Primary Care Provider] - (1) Lumbar vertebral fracture Qualifiers: Lumbar vertebra fracture level: L2 Qualified Code(s): S32.020A - Wedge compression fracture of second lumbar vertebra, initial encounter for closed fracture (3) Osteoporosis Qualifiers: Osteoporosis type: age-related Presence of current pathological fracture: unspecified Qualified Code(s): M81.0 - Age-related osteoporosis without current pathological fracture
[2018-07-01] MEDS: Ketorolac 15 MG/ML VIAL IVP PRN (13:10)
--- NOTE | 2018-07-01 16:11 | Palliative - Consult Note ---
Date of Encounter: 07/04/18 Time of Encounter: 16:03 - Assessment and Plan (1) Goals of care, counseling/discussion Current Visit: Yes Status: Acute Assessment and plan: discussed GOC with patient and daughter Sravanthi. Discussed current medical conditions, trajectory of illness, prognosis and treatment options. They have a good understanding of the pt's condition, and the goal at this time is to be treated conservatively, and be discharged to a swing bed, in an attempt to recover some functionality. (2) Advanced care planning/counseling discussion Current Visit: Yes Status: Acute Assessment and plan: Dicussed at [facility] advanced care planning, explained in detail the meaning of POA, and reviewed the POA form. Pt would like to chose her daughter Sravanthi as POA , but Sravanthi wants further discussion with the rest of the family. Also discussed code status, and explained the risk and benefits of CPR vs DNR. Patient decided to have further discussion with her family before a final decision is made. Family in possession of all forms. (3) Back pain Current Visit: Yes Status: Acute Assessment and plan: Back pain due to osteoporatic vertabral fractures. Pt is on [place] q 4hrs scheduled, Toradol q6hrs prn and flexeril. will start: Toradol 15 mg IVP q8hrs scheduled for 3 days [place] 1 pill q3hrs prn continue Flexeril 5 mg qhs add senna plus BID Plan discussed with patient and family Qualifiers: Back pain location: thoracic back pain Chronicity: acute Back pain laterality: unspecified Qualified Code(s): M54.6 - Pain in thoracic spine (4) Lumbar vertebral fracture Current Visit: Yes Status: Acute Assessment and plan: medical management Qualifiers: Encounter type: initial encounter Lumbar vertebra fracture level: unspecified lumbar vertebra Fracture type: closed Fracture morphology: unspecified fracture morphology Qualified Code(s): S32.009A - Unspecified fracture of unspecified lumbar vertebra, initial encounter for closed fracture Palliative-CN HPI - Data of Consult Patient: new to practice Consult date: 07/01/18 Requesting Physician: Sophia Casillas Primary Care Provider: Genevieve Starks CNP - Consult Narrative History of present illness: Ms. Hayes is a 77 year old female with a history of hypertension, hyperlipidemia , osteoporosis, CAD status post stents, that presented to the ED s/p fall and was admitted for lumbar fracture. MRI of the lumbar spine reveals multilevel degenerative changes. There is evidence of chronic appearing impression fractures in the lumbar and thoracic region. There are 2 acute/subacute compression fractures at L1 and L2 respectively. At the time of exam, pt was in bed, semi-sitting, in no acute distress. She states that her pain is better when she takes pain pills, but the effect does not last over 3 hours. She denies nausea, vomiting, dizziness, palpitation, numbness or weakness. CC: Sophia Casillas - Time Spent with Patient Time: Total time spent is greater than 50% face to face, in coordination of care (as documented) at patient's floor/unit and/or counseling patient: greater than 70 minutes. Past Med Surg Social Fam HX - Past Medical History Medical history: coronary artery disease, hyperlipidemia, hypertension, osteoporosis, thyroid disease Additional medical history: 2 hematoma Psychiatric history: no psych history - Past Surgical History Surgical History: no surgical history Additional surgical history: heart stents - Social History Smoking Status: Never smoker Smokeless Tobacco Status: No Alcohol use: none Drug use: none - Family History Mother Hx Family Cardiac Disorders: Yes (CAD) Hx Family Cancer: Yes (uterine cancer) Hx Family Endocrine Disorder: Yes (DM) Father Hx Family Cardiac Disorders: Yes (CAD) Medications and Allergies Aspirin Enteric Coated [Aspirin EC] 81 mg PO DAILY 01/15/18 [History] Cholecalciferol (Vitamin D3) [Vitamin D3] 3,000 unit PO DAILY 01/15/18 [History] Clopidogrel [Plavix] 75 mg PO DAILY 01/15/18 [History] Docusate [Colace] 100 mg PO DAILY PRN 01/15/18 [History] Famotidine [Heartburn Prevention] 20 mg PO HS 01/15/18 [History] Nitroglycerin [Nitrostat] 0.4 mg SL Q5MIN PRN 01/15/18 [History] Acetaminophen [Tylenol] 1,000 mg PO Q4H PRN 06/29/18 [History] Calcium Carbonate [Calcium] 500 mg PO TID 06/29/18 [History] Levothyroxine [Synthroid] 50 mcg PO 0630 06/29/18 [History] Lisinopril [Zestril] 5 mg PO DAILY PRN 06/29/18 [History] Rosuvastatin Calcium [Crestor] 2.5 mg PO HS 06/29/18 [History] 3 Allergy/AdvReac Type Severity Reaction Status Date / Time Procaine [From Novocain] Allergy Severe See Verified 06/29/18 10:43 Comments levofloxacin [From Levaquin] Allergy See Verified 06/29/18 10:43 Comments prednisone Allergy See Verified 06/29/18 10:43 Comments atenolol AdvReac Severe Weakness Verified 06/29/18 10:43 ticagrelor [From Brilinta] AdvReac Nausea Verified 06/29/18 10:43 - Constitutional Constitutional ROS PAL: weight loss - EENT Eyes: no change in vision - Cardiovascular Cardiovascular ROS: no chest pain, no dyspnea on exertion, no edema - Respiratory Respiratory: no cough, no dyspnea - Gastrointestinal Gastrointestinal: no abdominal pain, no constipation, no diarrhea - Genitourinary Palliative ROS female: no dysuria - Musculoskeletal Musculoskeletal ROS IM: arthralgias, back pain, joint swelling - Integumentary ROS Integumentary: no jaundice - Neurological Neurological ROS: no abnormal movements, no lack of coordination, no numbness, no weakness - Psychiatric Psychiatric general PM: no anxiety Palliative Care-Exam - Constitutional Vitals: Temp Pulse Resp BP Pulse Ox 98.5 F 51 16 126/69 96 07/01/18 14:56 07/01/18 14:56 07/01/18 14:56 07/01/18 14:56 07/01/18 14:56 General appearance: Present: thin Exam: alert and oriented x3, in no acute distress. - Respiratory Respiratory exam: Present: CTAB - Cardiovascular Cardiovascular exam: Present: RRR - GI/Abdominal Exam GI/Abdominal exam: Present: soft. Absent: tenderness - Extremities Exam Extremities exam: Present: pedal edema Additional comments: ulnar deviation of fingers - Back Exam Additional comments: back tenderness Internal Medicine - CN: Reslt - Labs CBC & Chem 7: 06/30/18 03:52 07/03/18 01:10 - ABG Interpretation ABG results: PT/INR, D-dimer PT 10.3 Seconds (9.4-12.1) 06/28/18 13:59 - Impressions Impressions Hip/Pelvis X-Ray 07/01/18 12:05 IMPRESSION: No acute findings. Remote left superior and inferior pubic rami fractures. D/ / 07/01/2018 14:50:55 Joe Holt MD / qiana Interpreting Provider: Joe Holt MD Consult Discharge Plan - Plan Referrals: Genevieve Starks, CAMP PROGRAM DIRECTOR [Primary Care Provider] - Palliative Quality Palliative Quality: Screen for Code Status: Yes, Screen for Goals of Care: Yes, Screen for Pain: Yes, If Pain Regimen Started, Initiate Bowel Regimen: Yes, Screen for Nausea/Vomitting: Yes Code Status: 06/28/18 11:25 Resuscitation Status: Active [RES] Routine Comment: Resuscitation Status: Full Code
--- NOTE | 2018-07-01 18:14 | Electrocardiograph Report ---
[address] [address] Test Date: 2018-06-29 Pat Name: Kristi Hayes Department: 114 Room: [facility] Gender: Windows Server Specialist: : 1940 Requested By: Eliza Lea Order Number: [id number] Reading MD: Torri Sanchez Measurements Intervals [place] Rate: 51 P: 22 DE: 153 QRS: -27 QRSD: 90 T: 21 QT: 422 QTc: 398 Interpretive Statements SINUS BRADYCARDIA VOLTAGE CRITERIA FOR [facility] POOR R WAVE PROGRESSION Electronically Signed On 07-01-2018 18:12:11 EDT by Torri Sanchez
[2018-07-01] MEDS: Ketorolac 15 MG/ML VIAL IVP SCH ×2 (18:58→23:27)
[2018-07-01] MEDS: Famotidine 20 MG TABLET PO SCH (19:22)
[2018-07-01] MEDS: Sennosides/Docusate Sodium TABLET PO SCH (19:22)
[2018-07-02] MEDS: *HR* HYDROcodone/Acet 7.5/325 mg TABLET PO PRN (06:25)
--- NOTE | 2018-07-02 08:37 | Internal Med Progress Note ---
Hospitalist Progress Note - Encounter Date of Encounter: 07/02/18 Time of Encounter: 10:45 - Subjective Interval History: awake with therapy team present. having some right hip pain. (XR yesterday neg) . notes chronic numbness tingling in feet and legs, unchanged from baseline. Denies cp, palpitations, sob fevers or chills. - Exam Vitals: Temp Pulse Resp BP Pulse Ox 98.5 F 63 16 128/54 96 07/02/18 06:47 07/02/18 06:47 07/02/18 06:47 07/02/18 06:47 07/02/18 06:47 Exam: General: awake, alert, appears stated age HEENT: pupils equal, round, moist mucus membranes Cardiovascular:regular rate and rhythm, normal S1 & S2, no murmurs appreciated. no lower extremity edema Lungs:Normal breath sounds, no wheezes, or crackles. Normal respiratory effort on room air Abdomen:Soft, non-tender, non-distended, + bowel sounds Neurological: AAOx3, CN grossly intact, no focal deficits Skin:Normal color, no rash, no pallor . - Assessment and Plan (1) Lumbar vertebral fracture Current Visit: Yes Status: Acute Assessment and Plan: As confirmed on MRI acute to subacute compression fracture involving the superior endplate of L2 with likely subacute compression fracture involving L1. Multiple chronic compression fractures are seen involving the lower thoracic and lumbar spine. No significant spinal canal stenosis is seen. Scattered neural foraminal narrowing -conservative managment with pain control and pt/ot -previous provider Had lengthy discussion with pt's daughter regarding pain medication and anti spasmodics -cont norco, toradol and flexeril prn -declined medrol dose pack because pt states she developed superficial thrombosis on prednisone in the past. -palliative care following -plan is dipso to swin bed when available . (2) Hip pain Current Visit: Yes Status: Acute Assessment and Plan: Complaint of right hi pain in light of recent fall, check x ray B/L hip and was negative -pain control as needed (3) CAD (coronary artery disease) Current Visit: No Status: Chronic Assessment and Plan: Hx cad- cont homemedication regimen -asa, statin, plavix, lisinopril, not on bb at home most likely 2/2 vasovagal history (4) Essential hypertension Current Visit: No Status: Chronic Assessment and Plan: stable meds as above (5) Hypothyroidism Current Visit: No Status: Chronic Assessment and Plan: synthroid (6) Osteoporosis Current Visit: No Status: Chronic Assessment and Plan: cont ca + vit D (7) Vasovagal episode Current Visit: No Status: Chronic Assessment and Plan: Chronic innature fall precautions DVT Prophylaxis: Lovenox - Time Spent with Patient Total time spent is greater than 50% in coordination of care (as documented) at patient's floor/unit and/or counseling patient: 25 - 35 minutes Plan of Care Discussed with: patient Internal Medicine: Result - Labs CBC & Chem 7: 06/30/18 03:52 06/30/18 03:52 - ABG Interpretation ABG results: PT/INR, D-dimer PT 10.3 Seconds (9.4-12.1) 06/28/18 13:59 - Impressions Impressions Hip/Pelvis X-Ray 07/01/18 12:05 IMPRESSION: No acute findings. Remote left superior and inferior pubic rami fractures. D/ / 07/01/2018 14:50:55 Joe Holt MD / qiana Interpreting Provider: Joe Holt MD Consult Discharge Plan - Plan Referrals: Genevieve Starks, TEACHING ASSOCIATE [Primary Care Provider] - (1) Lumbar vertebral fracture Qualifiers: Lumbar vertebra fracture level: L2 (2) Hip pain Qualifiers: Laterality: right Qualified Code(s): M25.551 - Pain in right hip (3) CAD (coronary artery disease) Qualifiers: Coronary Disease-Associated Artery/Lesion type: [place] artery [place] vs. transplanted heart: [place] heart Associated angina: with unstable angina Qualified Code(s): I25.110 - Atherosclerotic heart disease of [place] coronary artery with unstable angina pectoris (5) Hypothyroidism Qualifiers: Hypothyroidism type: acquired Qualified Code(s): E03.9 - Hypothyroidism, unspecified (6) Osteoporosis Qualifiers: Osteoporosis type: age-related Presence of current pathological fracture: unspecified Qualified Code(s): M81.0 - Age-related osteoporosis without current pathological fracture
[2018-07-02] MEDS: Sennosides/Docusate Sodium TABLET PO SCH ×2 (09:52→20:19)
[2018-07-02] MEDS: Cholecalciferol (D-3) 1,000 UNIT TABLET PO SCH (09:52)
[2018-07-02] MEDS: *HR* Enoxaparin 30 MG/0.3 ML SYRINGE SQ SCH (09:52)
[2018-07-02] MEDS: Aspirin Enteric Coated 81 MG Tablet PO SCH (09:54)
[2018-07-02] MEDS: Ketorolac 15 MG/ML VIAL IVP SCH ×3 (09:54→23:16)
[2018-07-02] MEDS ORDERED: Simethicone 80 MG TAB.CHEW PO PRN (16:39)
[2018-07-02] MEDS: [UNRECOGNIZED DRUG - OTHER] PO SCH (20:19)
[2018-07-02] MEDS: Famotidine 20 MG TABLET PO SCH (20:19)
[2018-07-03 02:28] LABS: BUN/Creatinine Ratio 36 (6-26); Blood Urea Nitrogen 32 mg/dL (8-23); Calcium 9.1 mg/dL (8.6-10.3); Carbon Dioxide 25 mEq/L (23-29); Chloride 101 mEq/L (98-107); Glucose 83 mg/dL (70-105); Magnesium 2.1 mg/dL (1.6-2.6); Osmolality,Calculated 280 (280-300); Sodium 132 mEq/L (136-145); eGFR For Non-African Americans > 60 (> 60)
[2018-07-03] MEDS: *HR* HYDROcodone/Acet 7.5/325 mg TABLET PO PRN ×2 (04:25→14:34)
[2018-07-03] MEDS: *HR* Enoxaparin 30 MG/0.3 ML SYRINGE SQ SCH (08:44)
[2018-07-03] MEDS: Ketorolac 15 MG/ML VIAL IVP SCH ×2 (08:45→17:11)
[2018-07-03] MEDS: Cholecalciferol (D-3) 1,000 UNIT TABLET PO SCH (08:45)
[2018-07-03] MEDS: Sennosides/Docusate Sodium TABLET PO SCH ×2 (08:47→20:32)
[2018-07-03] MEDS: Aspirin Enteric Coated 81 MG Tablet PO SCH (08:47)
[2018-07-03] MEDS: [UNRECOGNIZED DRUG - OTHER] PO SCH ×3 (08:47→20:34)
--- NOTE | 2018-07-03 08:49 | Internal Med Progress Note ---
Hospitalist Progress Note - Encounter Date of Encounter: 07/03/18 Time of Encounter: 10:20 - Subjective Interval History: awake in chair. cont low back and right hip pain. overall tolerating pain with medications. no other complaints. no fatigue, confusion, cp, sob. eating and drinking without difficulty. working with pt/ot - Exam Vitals: Temp Pulse Resp BP Pulse Ox 97.7 F 46 19 160/62 95 07/03/18 08:04 07/03/18 08:04 07/03/18 08:04 07/03/18 08:04 07/03/18 08:04 Exam: General: awake, alert, appears stated age HEENT: pupils equal, round, moist mucus membranes Cardiovascular:regular rate and rhythm, normal S1 & S2, no murmurs appreciated. no lower extremity edema Lungs:Normal breath sounds, no wheezes, or crackles. Normal respiratory effort on room air Abdomen:Soft, non-tender, non-distended, + bowel sounds Neurological: AAOx3 MSK: spinal process back in low lumbar region, no pain to palpation right hip joint . - Assessment and Plan (1) Lumbar vertebral fracture Current Visit: Yes Status: Acute Assessment and Plan: As confirmed on MRI acute to subacute compression fracture involving the superior endplate of L2 with likely subacute compression fracture involving L1. Multiple chronic compression fractures are seen involving the lower thoracic and lumbar spine. No significant spinal canal stenosis is seen. Scattered neural foraminal narrowing -conservative managment with pain control and pt/ot -previous provider Had lengthy discussion with pt's daughter regarding pain medication and anti spasmodics -cont norco, toradol and flexeril prn -declined medrol dose pack because pt states she developed superficial thrombosis on prednisone in the past. -palliative care following -plan is dipso to swing bed when available, SW to follow up wednesday . (2) Hip pain Current Visit: Yes Status: Acute Assessment and Plan: Complaint of right hi pain in light of recent fall, check x ray B/L hip and was negative -pain control as needed (3) CAD (coronary artery disease) Current Visit: No Status: Chronic Assessment and Plan: Hx cad- cont homemedication regimen -asa, statin, plavix, lisinopril, not on bb at home most likely 2/2 vasovagal history (4) Essential hypertension Current Visit: No Status: Chronic Assessment and Plan: Bps are variable, elevated at time -prn pain control -meds as above- lisinopril , of ntoe she takes a 5mg po daose prn elevated bps -given she is consistently elevated above goal one time 5mg PO this afternoon and monitor for effect (5) Hypothyroidism Current Visit: No Status: Chronic Assessment and Plan: synthroid (6) Osteoporosis Current Visit: No Status: Chronic Assessment and Plan: cont ca + vit D (7) Vasovagal episode Current Visit: No Status: Chronic Assessment and Plan: Chronic innature fall precautions (8) Hyponatremia Current Visit: Yes Status: Chronic Assessment and Plan: appears she has been hyponatremic throughout admission with sodium levels 132- 134 consistently without cognitive deficits Chronic in nature, stable, on chart review 133-136 in past year -defer to outpt provider for further work up as not contributory to presentation this admission and has remained stable DVT Prophylaxis: Lovenox - Time Spent with Patient Total time spent is greater than 50% in coordination of care (as documented) at patient's floor/unit and/or counseling patient: Internal Medicine: Result - Labs CBC & Chem 7: 06/30/18 03:52 07/03/18 01:10 Labs: BMP 07/03/18 01:10 Sodium 132 L Potassium 5.0 Chloride 101 Carbon Dioxide 25 BUN 32 H Creatinine 0.88 Glucose 83 Calcium 9.1 - ABG Interpretation ABG results: PT/INR, D-dimer PT 10.3 Seconds (9.4-12.1) 06/28/18 13:59 Consult Discharge Plan - Plan Referrals: Genevieve Starks, BOAT [employer]ENDER [Primary Care Provider] - (1) Lumbar vertebral fracture Qualifiers: Lumbar vertebra fracture level: L2 (2) Hip pain Qualifiers: Laterality: right Qualified Code(s): M25.551 - Pain in right hip (3) CAD (coronary artery disease) Qualifiers: Coronary Disease-Associated Artery/Lesion type: [place] artery [place] vs. transplanted heart: [place] heart Associated angina: with unstable angina Qualified Code(s): I25.110 - Atherosclerotic heart disease of [place] coronary artery with unstable angina pectoris (5) Hypothyroidism Qualifiers: Hypothyroidism type: acquired Qualified Code(s): E03.9 - Hypothyroidism, unspecified (6) Osteoporosis Qualifiers: Osteoporosis type: age-related Presence of current pathological fracture: unspecified Qualified Code(s): M81.0 - Age-related osteoporosis without current pathological fracture
[2018-07-03] MEDS: Famotidine 20 MG TABLET PO SCH (20:34)
[2018-07-04] MEDS: *HR* HYDROcodone/Acet 7.5/325 mg TABLET PO PRN ×2 (01:10→10:05)
[2018-07-04] MEDS: Aspirin Enteric Coated 81 MG Tablet PO SCH (08:37)
[2018-07-04] MEDS: Cholecalciferol (D-3) 1,000 UNIT TABLET PO SCH (08:37)
[2018-07-04] MEDS: Sennosides/Docusate Sodium TABLET PO SCH ×2 (08:37→21:51)
[2018-07-04] MEDS: [UNRECOGNIZED DRUG - OTHER] PO SCH ×3 (08:38→21:51)
[2018-07-04] MEDS: *HR* Enoxaparin 30 MG/0.3 ML SYRINGE SQ SCH (08:38)
--- NOTE | 2018-07-04 09:52 | Internal Med Progress Note ---
Hospitalist Progress Note - Encounter Date of Encounter: 07/04/18 Time of Encounter: 10:25 - Subjective Interval History: awake, daughter at bedside. She is doing overall well. cont to have low back pain. No hoffmann, chest pain, sob. Eating and drinking without difficulty. awaiting ecf - Exam Vitals: Temp Pulse Resp BP Pulse Ox 97.5 F L 58 16 150/59 94 07/04/18 06:45 07/04/18 06:45 07/04/18 06:45 07/04/18 06:45 07/04/18 08:46 Exam: General: awake, alert, appears stated age Cardiovascular:regular rate and rhythm, normal S1 & S2, no murmurs appreciated. no lower extremity edema Lungs:Normal breath sounds, no wheezes, or crackles. Normal respiratory effort on room air Abdomen:Soft, non-tender, non-distended, + bowel sounds Neurological: AAOx3 MSK: spinal process back in low lumbar region . - Assessment and Plan (1) Lumbar vertebral fracture Current Visit: Yes Status: Acute Assessment and Plan: As confirmed on MRI acute to subacute compression fracture involving the superior endplate of L2 with likely subacute compression fracture involving L1. Multiple chronic compression fractures are seen involving the lower thoracic and lumbar spine. No significant spinal canal stenosis is seen. Scattered neural foraminal narrowing -conservative managment with pain control and pt/ot -previous provider Had lengthy discussion with pt's daughter regarding pain medication and anti spasmodics -cont norco, toradol and flexeril prn -declined medrol dose pack because pt states she developed superficial thrombosis on prednisone in the past. -palliative care following -plan is dipso to swing bed when available, SW to follow up wednesday . (2) Hip pain Current Visit: Yes Status: Acute Assessment and Plan: Complaint of right hi pain in light of recent fall, check x ray B/L hip and was negative -pain control as needed (3) CAD (coronary artery disease) Current Visit: No Status: Chronic Assessment and Plan: Hx cad- cont homemedication regimen -asa, statin, plavix, lisinopril, not on bb at home most likely 2/2 vasovagal history (4) Essential hypertension Current Visit: No Status: Chronic Assessment and Plan: Bps are variable, elevated at time -prn pain control -meds as above- for lisinopril she takes a 5mg po dose prn elevated bps as per home med rec as well -requires outpt follow up for further management on dc (5) Hypothyroidism Current Visit: No Status: Chronic Assessment and Plan: synthroid (6) Osteoporosis Current Visit: No Status: Chronic Assessment and Plan: cont ca + vit D (7) Vasovagal episode Current Visit: No Status: Chronic Assessment and Plan: Chronic in nature fall precautions (8) Hyponatremia Current Visit: Yes Status: Chronic Assessment and Plan: appears she has been hyponatremic throughout admission with sodium levels 132- 134 consistently without cognitive deficits Chronic in nature, stable, on chart review 133-136 in past year -defer to outpt provider for further work up as not contributory to presentation this admission and has remained stable DVT Prophylaxis: Lovenox - Time Spent with Patient Total time spent is greater than 50% in coordination of care (as documented) at patient's floor/unit and/or counseling patient: 25 - 35 minutes Plan of Care Discussed with: patient Internal Medicine: Result - Labs CBC & Chem 7: 06/30/18 03:52 07/03/18 01:10 - ABG Interpretation ABG results: PT/INR, D-dimer PT 10.3 Seconds (9.4-12.1) 06/28/18 13:59 Consult Discharge Plan - Plan Referrals: Genevieve Starks, TORCH OPERATOR [Primary Care Provider] - (1) Lumbar vertebral fracture Qualifiers: Encounter type: initial encounter Lumbar vertebra fracture level: unspecified lumbar vertebra Fracture type: closed Fracture morphology: unspecified fracture morphology Qualified Code(s): S32.009A - Unspecified fracture of unspecified lumbar vertebra, initial encounter for closed fracture (2) Hip pain Qualifiers: Laterality: right Qualified Code(s): M25.551 - Pain in right hip (3) CAD (coronary artery disease) Qualifiers: Coronary Disease-Associated Artery/Lesion type: [place] artery [place] vs. transplanted heart: [place] heart Associated angina: with unstable angina Qualified Code(s): I25.110 - Atherosclerotic heart disease of [place] coronary artery with unstable angina pectoris (5) Hypothyroidism Qualifiers: Hypothyroidism type: acquired Qualified Code(s): E03.9 - Hypothyroidism, unspecified (6) Osteoporosis Qualifiers: Osteoporosis type: age-related Presence of current pathological fracture: unspecified Qualified Code(s): M81.0 - Age-related osteoporosis without current pathological fracture
--- NOTE | 2018-07-04 15:29 | Palliative Progress Note ---
Date of Encounter: 07/04/18 Time of Encounter: 12:00 - Assessment and plan (1) Goals of care, counseling/discussion Current Visit: Yes Status: Acute Assessment and plan: GOC are to be discharged to swing bed and ultimately to return home. (2) Back pain Current Visit: Yes Status: Acute Assessment and plan: Patient feels her pain was better controlled on Toradol IV, but was having stomac upset. Pt on Famotidine an simethicone. will continue Toradol discontinued continue [place] 1 pill q4hrs prn, patient getting about 2 doses daily will change Flexeril to 5 mg qhs scheduled Qualifiers: Back pain location: thoracic back pain Chronicity: acute Back pain laterality: unspecified Qualified Code(s): M54.6 - Pain in thoracic spine (3) Lumbar vertebral fracture Current Visit: Yes Status: Acute Qualifiers: Encounter type: initial encounter Lumbar vertebra fracture level: unspecified lumbar vertebra Fracture type: closed Fracture morphology: unspecified fracture morphology Qualified Code(s): S32.009A - Unspecified fracture of unspecified lumbar vertebra, initial encounter for closed fracture - Time Spent With Patient Total time spent is greater than 50% in coordination of care (as documented) at patient's floor/unit and/or counseling patient: Greater than 35 minutes - Subjective Interval history: pt was sitting on the chair, daughter at the bedside. She is still having lumbar back pain, but it is trying her best to remain active. Pt states the pain worsens when she has muscle spasm, which are happening often. - Constitutional Vitals: Abnormal lab results RBC 3.17 M/mcL (3.82-4.97) L 06/30/18 03:52 Hgb 10.4 g/dL (11.5-15.4) L 06/30/18 03:52 Hct 30.9 % (35.3-44.9) L 06/30/18 03:52 Sodium 132 mEq/L (136-145) L 07/03/18 01:10 BUN 32 mg/dL (8-23) H 07/03/18 01:10 BUN/Creatinine Ratio 36 (6-26) H 07/03/18 01:10 Urine Glucose (UA) 100 mg/dL (Normal) H 06/29/18 22:10 Ur Leukocyte Esterase Moderate (Negative) H 06/29/18 22:10 Urine Microscopic WBC 5-15 per hpf (0-3) H 06/29/18 22:10 Ur Culture Indicated? YES (NO) A 06/29/18 22:10 General appearance: Present: no acute distress - Cardiovascular Cardiovascular exam: Present: RRR - GI/Abdominal GI/Abdominal exam: Present: normal bowel sounds, soft. Absent: tenderness - Extremities Exam Extremities exam: Present: joint swelling Additional comments: ulnar deviation of fingers - Back Exam Back exam: Present: paraspinal tenderness, vertebral tenderness - Psychiatric Psychiatric exam: Present: normal affect, normal mood. Absent: anxious Palliative Quality Palliative Quality: Screen for Code Status: Yes, Screen for Goals of Care: Yes, Screen for Pain: Yes, If Pain Regimen Started, Initiate Bowel Regimen: Yes, Screen for Nausea/Vomitting: Yes Code Status: 06/28/18 11:25 Resuscitation Status: Active [RES] Routine Comment: Resuscitation Status: Full Code - Labs CBC & Chem 7: 06/30/18 03:52 07/03/18 01:10 - ABG Interpretation ABG results: PT/INR, D-dimer PT 10.3 Seconds (9.4-12.1) 06/28/18 13:59 Consult Discharge Plan - Plan Referrals: Genevieve Starks [employer] [Primary Care Provider] -
[2018-07-04] MEDS: Famotidine 20 MG TABLET PO SCH (21:51)
[2018-07-04] MEDS ORDERED: Acetaminophen 325 MG TABLET PO PRN (21:53)
[2018-07-04] MEDS ORDERED: *HR* HYDROcodone/Acet 7.5/325 mg TABLET PO PRN (22:31)
[2018-07-05] MEDS: [UNRECOGNIZED DRUG - OTHER] PO SCH (09:31)
[2018-07-05] MEDS: Sennosides/Docusate Sodium TABLET PO SCH (09:31)
[2018-07-05] MEDS: Cholecalciferol (D-3) 1,000 UNIT TABLET PO SCH (09:31)
[2018-07-05] MEDS: Aspirin Enteric Coated 81 MG Tablet PO SCH (09:32)
[2018-07-05] MEDS: *HR* Enoxaparin 30 MG/0.3 ML SYRINGE SQ SCH (09:32)
--- NOTE | 2018-07-05 10:04 | Discharge Summary ---
- NOTES TO OUTPATIENT PROVIDER Notes to Outpatient Provider: a) Follow-up BP, is on lisinopril at home. b) follow-up serum sodium levels, has history of chronic hyponatremia. Date of Encounter: 07/05/18 Time of Encounter: 09:57 - Discharge Diagnosis (1) Lumbar vertebral fracture Priority: Primary Status: Acute Qualifiers: Encounter type: initial encounter Lumbar vertebra fracture level: unspecified lumbar vertebra Fracture type: closed Fracture morphology: unspecified fracture morphology Qualified Code(s): S32.009A - Unspecified fracture of unspecified lumbar vertebra, initial encounter for closed fracture (2) CAD (coronary artery disease) Priority: Secondary Status: Chronic Qualifiers: Coronary Disease-Associated Artery/Lesion type: [place] artery [place] vs. transplanted heart: [place] heart Associated angina: with unstable angina Qualified Code(s): I25.110 - Atherosclerotic heart disease of [place] coronary artery with unstable angina pectoris (3) Essential hypertension Priority: Secondary Status: Chronic (4) Osteoporosis Priority: Secondary Status: Chronic Qualifiers: Osteoporosis type: age-related Presence of current pathological fracture: unspecified Qualified Code(s): M81.0 - Age-related osteoporosis without current pathological fracture (5) Hypothyroidism Priority: Secondary Status: Chronic Qualifiers: Hypothyroidism type: acquired Qualified Code(s): E03.9 - Hypothyroidism, unspecified (6) Vasovagal episode Priority: Secondary Status: Chronic (7) Hip pain Priority: Secondary Status: Acute Qualifiers: Laterality: right Qualified Code(s): M25.551 - Pain in right hip (8) Hyponatremia Priority: Secondary Status: Chronic Hospital course: Ms. Hayes is a 77 year old female with past medical history of CAD, NSTEMI, HTN, OA, cardiomyopathy, vasovagal episodes, multiple chronic spine fractures that presents s/p fall. Pt states she was feeling as though she was about to have a vasovagal episode. She then tried to get out of the tube and on her way out fell back wards and hit her back. Pt was seen by orthopedic spine and the yodit was to take her for kyphoplasty L1 and L2. Pre-operative evaluation revealed that pt was admitted here 01/2018 for NSTEMI and at that time [facility] showed severe left main disease of about 55-60%. Elective coronary artery bypass surgery vs. High risk PCI was offered but instead pt cinthya to a different facility 01/2018, [facility] in [place]. Cardiology was consulted for pre-op cardiac evaluation and they reviewed records from [facility]. Apparently pt did not get any intervention at [facility] because [facility] cath was repeated and pt was informed it was shadowing and not realling svere LM disease. Cardiology here reviewed the C from [facility] and still believes this is severe LM disease. Hence this puts pt at high risk for the procedure. Ortho therefore held off on doing the procedure and recommended conservative management since spine is not unstable and there is no clear indication for emergent surgery. Initially, pt and family want her transferred to [facility]) for third opinion regarding severity of left main disease. [facility] accepted transfer center and spoke with Dr. Doty who has agreed to accept the pt to cardiology service. She ended up not transferring per patient and family request. Palliative was consulted for goals of care and also aided with pain management. Patient was stable for discharge, and plan for swing bed. - Time Spent with Patient Total time spent providing and/or coordinating discharge services: - Discharge Medications Prescriptions: HYDROcodone/Acet 7.5/325 mg [[place] 7.5-325 mg] 1 tab PO Q6HR PRN 2 Days #8 tablet PRN Reason: Pain Home Medications: Aspirin Enteric Coated [Aspirin EC] 81 mg PO DAILY 01/15/18 [History] Cholecalciferol (Vitamin D3) [Vitamin D3] 3,000 unit PO DAILY 01/15/18 [History] Clopidogrel [Plavix] 75 mg PO DAILY 01/15/18 [History] Docusate [Colace] 100 mg PO DAILY PRN 01/15/18 [History] Famotidine [Heartburn Prevention] 20 mg PO HS 01/15/18 [History] Nitroglycerin [Nitrostat] 0.4 mg SL Q5MIN PRN 01/15/18 [History] Acetaminophen [Tylenol] 1,000 mg PO Q4H PRN 06/29/18 [History] Calcium Carbonate [Calcium] 500 mg PO TID 06/29/18 [History] Levothyroxine [Synthroid] 50 mcg PO 0630 06/29/18 [History] Lisinopril [Zestril] 5 mg PO DAILY PRN 06/29/18 [History] Rosuvastatin Calcium [Crestor] 2.5 mg PO HS 06/29/18 [History] Cholecalciferol (D-3) [Vitamin D] 3,000 unit PO DAILY tablet 07/05/18 [Rx] Cyclobenzaprine [Flexeril] 5 mg PO HS PRN tablet 07/05/18 [Rx] HYDROcodone/Acet 7.5/325 mg [[place] 7.5-325 mg] 1 tab PO Q6HR PRN 2 Days #8 tablet 07/05/18 [Rx] Patient Taking Own Medication 1 each PO TID each 07/05/18 [Rx] Sennosides/Docusate Sodium [Senna Plus] 1 each PO BID PRN tablet 07/05/18 [Rx] Simethicone [Gas-X] 80 mg PO TID PRN tab.chew 07/05/18 [Rx] Allergies/Adverse Reactions: 3 Allergy/AdvReac Type Severity Reaction Status Date / Time Procaine [From Novocain] Allergy Severe See Verified 06/29/18 10:43 Comments levofloxacin [From Levaquin] Allergy See Verified 06/29/18 10:43 Comments prednisone Allergy See Verified 06/29/18 10:43 Comments atenolol AdvReac Severe Weakness Verified 06/29/18 10:43 ticagrelor [From Brilinta] AdvReac Nausea Verified 06/29/18 10:43 Date of admission: 06/28/18 10:32 Primary care physician: Genevieve Starks CNP Consults: 06/29/18 09:17 Consult to Cardiology [CONS] Routine Comment: Consulting Provider: José Miguel Warner Reason for Consult: pre-op cardiac evaluation Call Completed: Yes 06/29/18 19:40 Consult to Physical Therapy [CONS] Routine Comment: Evaluate, develop and implement POC Reason for Consult: reevaluate for patient safety Does patient have active BEDREST order?: No Is patient medically & hemodynamically stable?: Yes Patient assessed for mobility or mobilized this visit?: No 07/01/18 11:55 Consult to Palliative Care [CONS] Routine Comment: Consulting Provider: Palliative Care Alana Reason for Consult: assist with ain managemet Call Completed: Yes 07/02/18 08:10 Consult to Occupational Therapy [CONS] Routine Comment: Evaluate, develop and implement POC Reason for Consult: possible need for rehab Does patient have active BEDREST order?: No Is patient medically & hemodynamically stable?: Yes Discharging clinician: Bianca Wells - Constitutional Vitals: Temp Pulse Resp BP Pulse Ox 97.7 F 55 17 160/58 96 07/05/18 07:17 07/05/18 07:17 07/05/18 07:17 07/05/18 07:17 07/05/18 07:17 General appearance: Present: A&O X 3, no acute distress Exam: General: awake, alert, appears stated age Cardiovascular:regular rate and rhythm, normal S1 & S2, no murmurs appreciated. no lower extremity edema Lungs:Normal breath sounds, no wheezes, or crackles. Normal respiratory effort on room air Neurological: AAOx3 MSK: spinal process back in low lumbar region - Patient Status Disposition: Transfer Intermediate Care Fac Condition: Fair Functional capacity at discharge: wheelchair bound Overall status at discharge: patient is not back to baseline - Discharge Instructions Follow Up With: Genevieve Starks [employer] [Primary Care Provider] - - Diet and Activity Activity: as per physical therapy Diet: advance to your usual diet
--- NOTE | 2018-07-05 10:08 | Physician Discharge Referral ---
ExtendedCare Referral Info Institutional Level of Care: Intermediate - Diagnosis (1) Lumbar vertebral fracture Priority: Primary Status: Acute (2) CAD (coronary artery disease) Priority: Secondary Status: Chronic (3) Essential hypertension Priority: Secondary Status: Chronic (4) Osteoporosis Priority: Secondary Status: Chronic (5) Hypothyroidism Priority: Secondary Status: Chronic (6) Vasovagal episode Priority: Secondary Status: Chronic (7) Hip pain Priority: Secondary Status: Acute (8) Hyponatremia Priority: Secondary Status: Chronic - Transfer Medications Prescriptions: HYDROcodone/Acet 7.5/325 mg [[place] 7.5-325 mg] 1 tab PO Q6HR PRN 2 Days #8 tablet PRN Reason: Pain Home Medications: Aspirin Enteric Coated [Aspirin EC] 81 mg PO DAILY 01/15/18 [History] Cholecalciferol (Vitamin D3) [Vitamin D3] 3,000 unit PO DAILY 01/15/18 [History] Clopidogrel [Plavix] 75 mg PO DAILY 01/15/18 [History] Docusate [Colace] 100 mg PO DAILY PRN 01/15/18 [History] Famotidine [Heartburn Prevention] 20 mg PO HS 01/15/18 [History] Nitroglycerin [Nitrostat] 0.4 mg SL Q5MIN PRN 01/15/18 [History] Acetaminophen [Tylenol] 1,000 mg PO Q4H PRN 06/29/18 [History] Calcium Carbonate [Calcium] 500 mg PO TID 06/29/18 [History] Levothyroxine [Synthroid] 50 mcg PO 0630 06/29/18 [History] Lisinopril [Zestril] 5 mg PO DAILY PRN 06/29/18 [History] Rosuvastatin Calcium [Crestor] 2.5 mg PO HS 06/29/18 [History] Cholecalciferol (D-3) [Vitamin D] 3,000 unit PO DAILY tablet 07/05/18 [Rx] Cyclobenzaprine [Flexeril] 5 mg PO HS PRN tablet 07/05/18 [Rx] HYDROcodone/Acet 7.5/325 mg [[place] 7.5-325 mg] 1 tab PO Q6HR PRN 2 Days #8 tablet 07/05/18 [Rx] Patient Taking Own Medication 1 each PO TID each 07/05/18 [Rx] Sennosides/Docusate Sodium [Senna Plus] 1 each PO BID PRN tablet 07/05/18 [Rx] Simethicone [Gas-X] 80 mg PO TID PRN tab.chew 07/05/18 [Rx] Allergies/Adverse Reactions: 3 Allergy/AdvReac Type Severity Reaction Status Date / Time Procaine [From Novocain] Allergy Severe See Verified 06/29/18 10:43 Comments levofloxacin [From Levaquin] Allergy See Verified 06/29/18 10:43 Comments prednisone Allergy See Verified 06/29/18 10:43 Comments atenolol AdvReac Severe Weakness Verified 06/29/18 10:43 ticagrelor [From Brilinta] AdvReac Nausea Verified 06/29/18 10:43 - Respiratory Orders Smoking Cessation: Smoking cessation has been advised. For more information, call the [place] Tobacco Quit Line at 1-785-NCBV-NOW. - Advance Directives Code Status: Full Code - Rehabiliation Orders Rehab Potential: Fair Rehab Orders: Evaluation for Physical Therapy, Evaluation for Occupational Therapy - Diet Orders Cardiac House Supplement per Dietary: Magic cup @ dinner CERTIFICATION: I certify that the transfer of the above named patient to an Extended Care Facility is necessary for the continuing treatment of the diagnosis listed. The above information is true and accurate reflection of patient's current condition. Confidential - Redisclosure prohibited without a patient's written consent.
--- NOTE | 2018-07-05 12:09 | Event Note ---
Date of Encounter: 07/05/18 Time of Encounter: 11:45
--- NOTE | 2018-07-05 12:13 | Palliative Progress Note ---
Date of Encounter: 07/05/18 Time of Encounter: 11:45 - Assessment and plan (1) Back pain Current Visit: Yes Status: Acute Assessment and plan: Patient would like to try acetaminophen only for mild to moderate pain. Discharge with acetaminophen 500mg q6hrs prn. Will continue Schlater 1 pill q4hrs prn for severe pain, patient getting about 1 doses daily continue Flexeril to 5 mg qhs scheduled Qualifiers: Back pain location: thoracic back pain Chronicity: acute Back pain laterality: unspecified Qualified Code(s): M54.6 - Pain in thoracic spine (2) Lumbar vertebral fracture Current Visit: Yes Status: Acute Qualifiers: Encounter type: initial encounter Lumbar vertebra fracture level: unspecified lumbar vertebra Fracture type: closed Fracture morphology: unspecified fracture morphology Qualified Code(s): S32.009A - Unspecified fracture of unspecified lumbar vertebra, initial encounter for closed fracture - Time Spent With Patient Total time spent is greater than 50% in coordination of care (as documented) at patient's floor/unit and/or counseling patient: 25 - 35 minutes - Subjective Interval history: Patient was seen today, sitting on the chair and fully dressed for discharge. She is feeling better, but is still complaining of pain. The muscle spasm improved. Patient received 1 dose of Schlater last night, and is avoiding the medication for fear of addiction. She would like to try Acetaminophen only without the opioids. - Constitutional Vitals: Abnormal lab results RBC 3.17 M/mcL (3.82-4.97) L 06/30/18 03:52 Hgb 10.4 g/dL (11.5-15.4) L 06/30/18 03:52 Hct 30.9 % (35.3-44.9) L 06/30/18 03:52 Sodium 132 mEq/L (136-145) L 07/03/18 01:10 BUN 32 mg/dL (8-23) H 07/03/18 01:10 BUN/Creatinine Ratio 36 (6-26) H 07/03/18 01:10 Urine Glucose (UA) 100 mg/dL (Normal) H 06/29/18 22:10 Ur Leukocyte Esterase Moderate (Negative) H 06/29/18 22:10 Urine Microscopic WBC 5-15 per hpf (0-3) H 06/29/18 22:10 Ur Culture Indicated? YES (NO) A 06/29/18 22:10 - Respiratory Respiratory exam: Present: CTAB - Cardiovascular Cardiovascular exam: Present: RRR - GI/Abdominal GI/Abdominal exam: Present: normal bowel sounds, soft - Back Exam Back exam: Present: vertebral tenderness Additional comments: lumbar - Neurological Exam Neurological exam: Present: alert, oriented X3 Palliative Quality Palliative Quality: Screen for Code Status: Yes, Screen for Goals of Care: Yes, Screen for Pain: Yes, If Pain Regimen Started, Initiate Bowel Regimen: Yes, Screen for Nausea/Vomitting: Yes Code Status: 06/28/18 11:25 Resuscitation Status: Active [RES] Routine Comment: Resuscitation Status: Full Code - Labs CBC & Chem 7: 06/30/18 03:52 07/03/18 01:10 - ABG Interpretation ABG results: PT/INR, D-dimer PT 10.3 Seconds (9.4-12.1) 06/28/18 13:59 Consult Discharge Plan - Plan Referrals: Genevieve Starks OPHTHALMIC NURSE [Primary Care Provider] - Prescriptions: HYDROcodone/Acet 7.5/325 mg [Schlater 7.5-325 mg] 1 tab PO Q6HR PRN 2 Days #8 tablet PRN Reason: Pain
[2018-07-05 12:14] VITALS: BP 155/76
== END 2018-07-05 14:53 ==
LOC: 3NENU → SUATTDRO 10:32
PROVIDERS: ADMIT Family Medicine; ATTEND Internal Medicine